=== PATIENT | female | born 1955 | race Caucasian/White ===

== ENCOUNTER 2024-05-01 21:00 | Inpatient (IN) ==
--- NOTE | 2024-05-01 21:25 | Emergency Department Note ---
Impression & Plan Acute pancreatitis, Abdominal pain, Vomiting ED Provider Note NAME: WELLINGTON SAEZ AGE: 69 SEX: F : 1955 ARRIVES VIA: Walk-In INFORMANT: Patient, ED PROVIDER(S): Benito Staples DO CHIEF COMPLAINT: Vomiting HPI: The patient is a 69-year-old female who presented to the emergency department for an evaluation of nausea vomiting. The patient describes lower abdominal pain that began over the last 48 hours. She was seen at an urgent care and started on an antibiotic for urinary tract infection. She has no history of diverticulitis. The patient denies having any back pain. She denies having any chest pain or fever. The patient came to the emergency department this evening because of ongoing worsening symptoms. The patient has been compliant with her outpatient medications which include an antibiotic as well as Pyridium. ROS: See above HPI for pertinent positives & negatives. A total of 10 systems reviewed and were otherwise negative. PAST MEDICAL HISTORY: See Below PAST SURGICAL HISTORY: See Below FAMILY HISTORY: See Below SOCIAL HISTORY: See Below HOME MEDICATIONS: See Below ALLERGIES: See Below VITALS: See Below PHYSICAL EXAMINATION: GENERAL: Patient is awake alert in no acute distress patient is resting comfortably and showing no signs of anxiety EYES: The conjunctivae are clear. The pupils are round and reactive. EARS, NOSE, MOUTH AND THROAT: The nose is without any evidence of any deformity. NECK: The neck is nontender and supple. RESPIRATORY: Normal respiratory effort is noted there is no evidence of wheezing rhonchi or rales CARDIOVASCULAR: Regular rate and rhythm noted there no murmurs rubs or gallops normal S1 normal S2. GASTROINTESTINAL: The abdomen is soft. There is lower abdominal tenderness to palpation. There is no guarding or rigidity. MUSCULOSKELETAL/EXTREMITIES: There is no evidence of gross deformity full range of motion is noted in the hips and shoulders. SKIN: There is no obvious evidence of any rash. There are no petechiae, pallor or cyanosis noted. NEUROLOGIC: Patient is awake alert and oriented x3 MEDICAL DECISION MAKING: The patient is a 69-year-old female who presented to the emergency department for an evaluation of abdominal pain. The patient was seen recently diagnosed with a urinary tract infection. She has been taking the antibiotics without significant relief of her symptoms. I discussed the patient's laboratory and radiographic studies with her. She was treated with pain medication in the emergency department. She was also treated with IV fluids and IV antiemetics. She was also treated with Protonix. CT appears to be consistent with mild pancreatitis. The patient does not have an elevation in her lipase. She has a slight elevation in her bilirubin. She does not appear to have any ductal dilatation. The patient was feeling somewhat improved but still had very severe pain. For this reason I will discuss her condition with the on-call [facility] hospitalist. Triage Nursing notes reviewed. Prior medical records reviewed Vital Signs: reviewed and remarkable for elevated blood pressure. Differential diagnosis: Etiologies such as appendicitis, diverticulitis, obstruction, inflammatory bowel disease, renal colic, PUD, biliary pathology, pancreatitis, mesenteric ischemia, aortic pathology, infections, genitourinary, UTI, perforated viscus, as well as others were entertained. ER treatment provided: See below Diagnostics interpreted by me: ECG: None Cardiac Monitoring: An order was placed for continuous cardiac monitoring. The monitor shows a rate of 97 bpm with sinus rhythm. Laboratory studies: As stated above and show below. Imaging studies: See below. Radiographic imaging was reviewed by myself Consultation(s): I discussed her condition with the on-call [facility] hospitalist, Dr. Harden. He will evaluate the patient in the emergency department. Past Med/Surg History Problem List (Updated 05/02/24 @ 00:54 by Brittany Ford DO) Urinary tract infection Vomiting (Acute) Abdominal pain (Acute) Acute pancreatitis (Acute) Osteoarthritis, knee Cobalamin deficiency Lumbosacral radiculopathy at S1 Obesity Scoliosis of lumbar region due to degenerative disease of spine in adult Degenerative spondylolisthesis Hypertension Spinal stenosis of lumbar region Lumbar radiculopathy Idiopathic polyneuropathy GERD (gastroesophageal reflux disease) Hyperlipidemia Prediabetes Venous insufficiency Restless leg syndrome Hypothyroidism Medical History Bilateral cataracts Surgical History Hx of cataract extraction Hx of colonoscopy S/P right knee arthroscopy (07/22/23) History of tonsillectomy History of wisdom tooth extraction S/P appendectomy S/P total hysterectomy and bilateral salpingo-oophorectomy Family History Father Prostate cancer Diabetes Coronary heart disease Myocardial infarction Hypertension Mother Ovarian cancer Aunt Ovarian cancer Aunt Dementia Other No family history of adverse response to anesthesia Denies family history of Breast cancer Colorectal cancer Social History Smoking Status: Never smoker Second Hand Exposure: No; Do You Dip or Chew Tobacco: No; Tobacco Cessation Education Requested by Patient: No Hx Alcohol Use: No Hx Substance Use: No Preferred Language: Slovak Communication Ability: Effective Visual Impairment: Partially Limited Hearing Ability: Normal Enterprise Application Administrator Required: No Beliefs That Will Affect Care: None marital status: Current Living Situation: Spouse current occupational status: retired current occupation: educator; 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 [employer] How many Children do You have: 1 Other Information That Helps Us Care for You: No Feels Safe at Home: Yes Safety Concerns: Feels Safe At This Time Childhood Exposure to Second-Hand Smoke: No Diet: regular Diet Comment: regular caffeine: Yes during the past year weight has: remained stable Dental Care, Regularly: Yes Physical Activity Frequency: Daily Physical Activity Frequency Comment: walks daily Seatbelt Use: always Sunscreen Use: Yes Assistive Devices: None Allergies Allergies Allergy/AdvReac Type Severity Reaction Status Date / Time No Known Drug Allergies Allergy Verified 04/29/24 10:24 Home Meds Home Medications Medication Instructions Recorded Confirmed atorvastatin 40 mg tablet 40 mg PO QAM 05/01/24 05/01/24 cephalexin 500 mg capsule 500 mg PO BID 05/01/24 05/01/24 furosemide 20 mg tablet (Lasix) 20 - 40 mg PO HS PRN edema 05/01/24 05/01/24 levothyroxine 125 mcg tablet 125 mcg PO DAILYBB 05/01/24 05/01/24 lisinopril 10 mg tablet 10 mg PO QAM 05/01/24 05/01/24 mecobalamin (vitamin B12) 1,000 1,000 mcg PO QAM 05/01/24 05/01/24 mcg chewable tablet omeprazole 20 mg capsule,delayed 20 mg PO QAM 05/01/24 05/01/24 release phenazopyridine 100 mg tablet 100 mg PO Q8 PRN URINARY BURNING 05/01/24 05/01/24 (Pyridium) Previous Rx's Medication Instructions Recorded hydrocodone 5 mg-acetaminophen 325 1 tab PO Q6H PRN pain #20 tabs 06/16/23 mg tablet gabapentin 300 mg capsule 300 mg PO HS #90 caps 01/06/24 meloxicam 7.5 mg tablet 7.5 mg PO BID #180 tabs 01/06/24 pramipexole 0.5 mg tablet 1 mg (2 x 0.5 mg) PO HS #180 tabs 04/11/24 Results & Data (ED) Vital Signs Vital Signs - 24 hr 05/01/24 21:02 05/01/24 21:20 05/01/24 21:33 Temperature 36.8 C Temperature Source Temporal Artery Scan Pulse Rate 107 H 84 Pulse Rate from SpO2 Sensor Respiratory Rate 20 Blood Pressure 174/100 H Blood Pressure Mean 124 Pulse Oximetry 97 97 Oxygen Delivery Method Room Air Room Air Sepsis Recent Fever Within 48 Hours No Sepsis New/Unexplained Change in Mental Status No Sepsis Action Taken by Nursing No Action Required 05/01/24 21:36 05/01/24 21:42 05/01/24 22:39 Temperature Temperature Source Pulse Rate 88 86 83 Pulse Rate from SpO2 Sensor 88 87 84 Respiratory Rate 18 21 19 Blood Pressure 169/93 H Blood Pressure Mean 118 Pulse Oximetry 96 94 97 Oxygen Delivery Method Room Air Sepsis Recent Fever Within 48 Hours Sepsis New/Unexplained Change in Mental Status Sepsis Action Taken by Nursing 05/01/24 22:51 05/01/24 23:00 05/01/24 23:06 Temperature Temperature Source Pulse Rate 88 97 H Pulse Rate from SpO2 Sensor 88 93 H Respiratory Rate 19 14 Blood Pressure 187/94 H 187/94 H Blood Pressure Mean 125 121 Pulse Oximetry 96 97 Oxygen Delivery Method Room Air Sepsis Recent Fever Within 48 Hours Sepsis New/Unexplained Change in Mental Status Sepsis Action Taken by Nursing 05/01/24 23:06 05/01/24 23:21 05/01/24 23:36 Temperature Temperature Source Pulse Rate 90 87 Pulse Rate from SpO2 Sensor 89 87 Respiratory Rate 25 H 16 Blood Pressure 187/94 H Blood Pressure Mean 121 Pulse Oximetry 98 Oxygen Delivery Method Room Air Sepsis Recent Fever Within 48 Hours Sepsis New/Unexplained Change in Mental Status Sepsis Action Taken by Nursing 05/01/24 23:51 05/02/24 00:00 05/02/24 00:00 Temperature Temperature Source Pulse Rate 88 Pulse Rate from SpO2 Sensor 88 Respiratory Rate 18 Blood Pressure 180/97 H 180/97 H Blood Pressure Mean 127 127 Pulse Oximetry 97 Oxygen Delivery Method Sepsis Recent Fever Within 48 Hours Sepsis New/Unexplained Change in Mental Status Sepsis Action Taken by Nursing 05/02/24 00:00 05/02/24 00:00 05/02/24 00:03 Temperature Temperature Source Pulse Rate 83 88 Pulse Rate from SpO2 Sensor 84 90 Respiratory Rate 22 18 Blood Pressure 180/97 H Blood Pressure Mean 127 Pulse Oximetry 99 100 Oxygen Delivery Method Sepsis Recent Fever Within 48 Hours Sepsis New/Unexplained Change in Mental Status Sepsis Action Taken by Prison Medications Current Medication List: was personally reviewed by me Laboratory Data Attestation: I reviewed the patient's lab results. 05/02/24 04:14 05/02/24 04:14 Lab Results 05/01/24 05/01/24 Range/Units 21:15 21:31 WBC 16.47 H (4.8-10.8) K/ul RBC 4.67 (4.20-5.40) M/uL Hgb 13.6 (12.0-16.0) g/dl POC Hgb 13.3 (12.0-16.0) g/dl Hct 40.1 (37.0-47.0) % POC Hct 39 (37-47) % MCV 85.9 (80.0-100.0) fL MCH 29.1 (25.0-34.0) pg MCHC 33.9 (32.0-36.0) g/dL RDW Std Deviation 38.5 (36.4-46.3) fL RDW Coeff of [place] 12.3 (11.5-14.5) % Plt Count 372 (130-400) K/uL MPV 9.6 (9.4-12.4) fL Immature Gran % (Auto) 0.4 % Neut % (Auto) 82.8 % Lymph % (Auto) 10.4 % [place] % (Auto) 5.7 % Eos % (Auto) 0.2 % Baso % (Auto) 0.5 % Neut # (Auto) 13.62 H (1.40-6.50) K/uL Lymph # (Auto) 1.71 (1.20-3.40) K/uL [place] # (Auto) 0.94 H (0.11-0.59) K/uL Eos # (Auto) 0.04 (0.00-0.50) K/uL Baso # (Auto) 0.09 (0.00-0.20) K/uL Immature Gran # (Auto) 0.07 (0.01-0.20) K/uL POC Sodium 137 (135-144) mmol/L Sodium 136 (136-145) mmol/L POC Potassium 3.5 (3.3-5.0) mmol/L Potassium 3.6 (3.5-5.1) mmol/L POC Chloride 101 (101-112) mmol/L Chloride 100 (98-107) mmol/L Carbon Dioxide 25 (21-32) mmol/L POC Total CO2 24 (24-31) mmol/L Anion Gap 11 (3-11) POC Anion Gap 17.0 (16-25) mmol/L POC BUN 11 (7-18) mg/dl BUN 14 (6-23) mg/dl Creatinine 0.67 (0.6-1.2) mg/dl POC Creatinine 0.7 (0.6-1.3) mg/dl Est Cr Clr Drug Dosing 88.0 ml/min Est GFR ( Amer) 105.4 ml/min Est GFR (Non-Af Amer) 91.0 ml/min BUN/Creatinine Ratio 20.9 H (10-20) Glucose 130 H (70-99(Fasting)) mg/dl POC Glucose (other) 165 H (70-99) mg/dl Calcium 9.8 (8.6-10.3) mg/dl POC Ioniz Calcium [place] 1.14 (1.12-1.32) mmol/l Total Bilirubin 1.1 H (0.2-1.0) mg/dl AST 16 (13-39) U/L ALT 16 (7-52) U/L Alkaline Phosphatase 106 H (34-104) U/L Total Protein 7.7 (6.0-8.3) gm/dl Albumin 4.4 (3.4-5.0) gm/dl Globulin 3.3 (2.5-4.0) gm/dl Albumin/Globulin Ratio 1.3 (0.9-2) Triglycerides 116 (0-150) mg/dl Lipase 55 (11-82) U/L Urine Color See Comment Urine Appearance Clear (Clear) Urine pH Not Reportable Ur Specific [place] 1.022 (1.000-1.030) Urine Protein Not Reportable Urine Glucose (UA) Not Reportable Urine Ketones Not Reportable Urine Blood Not Reportable Urine Nitrite Not Reportable Urine Bilirubin Not Reportable Urine Urobilinogen Not Reportable Ur Leukocyte Esterase Not Reportable Urine RBC 3-5 H (0-2) /hpf Urine WBC 6-10 H (0-5) /hpf Ur Epithelial Cells 11-20 H (0-2) /hpf Urine Bacteria None Seen (None Seen) Administered Medications Hydromorphone HCl (Hydromorphone Inj 0.5 Mg/0.5 Ml Syr) 0.25 mg IV Q6H PRN PRN Reason: Breakthrough Pain Stop: 05/16/24 01:55 Last Admin: 05/02/24 05:03 Dose: 0.25 mg Documented By: EMERY Lactated Ringer's (Lr) 1,000 mls @ 200 mls/hr IV .Q5H [facility] Stop: 06/01/24 01:55 Last Admin: 05/02/24 13:18 Dose: 200 mls/hr Documented By: Infusion: 05/02/24 13:10 Dose: Infused Documented By: Admin: 05/02/24 07:17 Dose: 200 mls/hr Documented By: Infusion: 05/02/24 07:15 Dose: Infused Documented By: Admin: 05/02/24 02:15 Dose: 200 mls/hr Documented By: MINDI Ceftriaxone Sodium (Rocephin) 2,000 mg in 50 mls @ 100 mls/hr IV Q24H [facility] Stop: 05/07/24 02:59 Last Infusion: 05/02/24 03:03 Dose: Infused Documented By: Admin: 05/02/24 02:23 Dose: 100 mls/hr Documented By: MINDI Pantoprazole Sodium 40 mg/ (Syringe) 10 mls @ 5 mls/min IV DAILY@1100 [facility] Stop: 06/01/24 10:59 Last Admin: 05/02/24 11:26 Dose: 5 mls/min Documented By: ISA Levothyroxine Sodium (Levothyroxine Sodium 125 Mcg Tablet) 125 mcg PO DAILYBB [facility] Stop: 06/01/24 06:29 Last Admin: 05/02/24 06:29 Dose: 125 mcg Documented By: IDD Lisinopril (Lisinopril 10 Mg Tab) 10 mg PO QAM [facility]EL[facility] Stop: 06/01/24 08:59 Last Admin: 05/02/24 07:17 Dose: 10 mg Documented By: MIRZA Morphine Sulfate (Morphine Sulfate 2 Mg/Ml Carp) 2 mg IV Q4H PRN PRN Reason: Pain 1-5 Stop: 05/16/24 01:55 Last Admin: 05/02/24 06:34 Dose: 2 mg Documented By: THERON Morphine Sulfate (Morphine Sulfate 4 Mg/Ml 1 Ml Carp\Vial) 4 mg IV Q4H PRN PRN Reason: Pain 5-10 Stop: 05/16/24 01:55 Last Admin: 05/02/24 13:18 Dose: 4 mg Documented By: Admin: 05/02/24 02:13 Dose: 4 mg Documented By: MINDI Discontinued Medications Amlodipine Besylate (Amlodipine Besylate 5 Mg Tab) 2.5 mg PO NOW ONE Stop: 05/02/24 13:32 Last Admin: 05/02/24 13:41 Dose: 2.5 mg Documented By: ISA Sodium Chloride (Nss) 1,000 mls @ 999 mls/hr IV .Q1H1M [facility] Stop: 05/01/24 22:15 Last Infusion: 05/01/24 22:43 Dose: Infused Documented By: Admin: 05/01/24 21:31 Dose: 999 mls/hr Documented By: MINDI Pantoprazole Sodium 40 mg/ (Syringe) 10 mls @ 5 mls/min IV NOW ONE Stop: 05/01/24 23:02 Last Admin: 05/01/24 23:19 Dose: 5 mls/min Documented By: SKYLAR Ioversol (Optiray 320 100ml) 95 ml IV ONCE ONE Stop: 05/01/24 22:16 Last Admin: 05/01/24 22:15 Dose: 95 ml Documented By: ANN MARIE Morphine Sulfate (Morphine Sulfate 4 Mg/Ml 1 Ml Carp\Vial) 4 mg IV Q15M PRN PRN Reason: Pain Stop: 05/15/24 21:14 Last Admin: 05/01/24 23:21 Dose: 4 mg Documented By: Admin: 05/01/24 21:31 Dose: 4 mg Documented By: MINDI Ondansetron HCl (Ondansetron Inj 2 Mg/Ml 2 Ml Vial) 4 mg IV NOW STA Stop: 05/01/24 21:16 Last Admin: 05/01/24 21:31 Dose: 4 mg Documented By: MINDI Imaging Data Attestation: I personally reviewed and interpreted this imaging study as follows: My Impression: CT of the abdomen and pelvis was obtained in the emergency department. My interpretation is no free air or definite bowel obstruction, final report below. Radiologist's Impression: Abdomen/Pelvis CT 05/01/24 21:15 Exam(s): CT ABDOMEN + PELVIS With Contrast IV Amt: 95ml optiray 320 EXAM: CT Abdomen and Pelvis With Intravenous Contrast CLINICAL HISTORY: Reason for exam: lower abd pain. TECHNIQUE: Axial computed tomography images of the abdomen and pelvis with intravenous contrast. CTDI is 27 mGy and DLP is 1323 mGy-cm. Automated exposure control was utilized for the study. A dose lowering technique was utilized adhering to the principles of ALARA. CONTRAST: Patient received 95ml optiray 320 of IV contrast COMPARISON: 09/07/20 FINDINGS: Lung bases: Unremarkable. No mass. No consolidation. ABDOMEN: Liver: Unremarkable. No mass. Gallbladder and bile ducts: Unremarkable. No calcified stones. No ductal dilation. Pancreas: Mild acute pancreatitis with inflammatory stranding surrounding the head and uncinate process of the pancreas. No drainable fluid or abscess collection. There is no evidence for pancreatic necrosis. Recommend correlation with serum pancreatic enzymes. No ductal dilation. Spleen: Unremarkable. No splenomegaly. Adrenals: Unremarkable. No mass. Kidneys and ureters: Unremarkable. No solid mass. No hydronephrosis. Stomach and bowel: Unremarkable. No obstruction. No mucosal thickening. PELVIS: Appendix: No findings to suggest acute appendicitis. Bladder: Unremarkable. No mass. Reproductive: Post hysterectomy. ABDOMEN and PELVIS: Intraperitoneal space: Mild inflammatory stranding extends into the left mesentery. Trace pelvic ascites. No free air. Bones/joints: No acute fracture. No dislocation. Lumbar spine levoscoliosis and facet hypertrophic changes. Soft tissues: Unremarkable. Vasculature: Unremarkable. No abdominal aortic aneurysm. Lymph nodes: Unremarkable. No enlarged lymph nodes. IMPRESSION: Mild acute pancreatitis with inflammatory stranding surrounding the head and uncinate process of the pancreas. No drainable fluid or abscess collection. There is no evidence for pancreatic necrosis. Recommend correlation with serum pancreatic enzymes. Electronically signed by: Angel Jeronimo MD 05/01/24 22:30 PM Discharge Plan Visit Data Chief Complaint: Vomiting Stated Complaint: LOWER ABD PAIN, VOMITING ED Provider: eBnito Staples Discharge Problem: Acute pancreatitis, Abdominal pain, Vomiting Patient Disposition: Being Evaluated by Hospitalist Discharge Instructions Interventions: ED Discharge Assessment Last Done: 05/02/24 01:56 Discharge Problem: Acute pancreatitis Qualifiers: Pancreatitis type: unspecified pancreatitis type Acute pancreatitis complication: unspecified Qualified Code(s): K85.90 - Acute pancreatitis without necrosis or infection, unspecified Abdominal pain Qualifiers: Abdominal location: lower abdomen, unspecified Qualified Code(s): R10.30 - Lower abdominal pain, unspecified Vomiting Qualifiers: Vomiting type: unspecified Nausea presence: with nausea Qualified Code(s): R 11.2 - Nausea with vomiting, unspecified
[2024-05-01 21:31] LABS: Appearance Urine Clear (Clear)
[2024-05-01] MEDS: ONDANSETRON INJ 2 MG/ML 2 ML VIAL IV STA (21:31)
[2024-05-01] MEDS: MoRPHine SULFATE 4 MG/ML 1 ML CARP\\VIAL IV PRN (21:31)
[2024-05-01] MEDS: SODIUM CHLORIDE 0.9% 1,000 ML IV STA (21:31)
[2024-05-01 21:42] LABS: Specific Gravity Urine 1.022 (1.000-1.030)
[2024-05-01 21:43] LABS: Basophils # (auto) 0.09 K/uL (0.00-0.20); Basophils % (auto) 0.5 %; Eosinophils # (auto) 0.04 K/uL (0.00-0.50); Eosinophils % (auto) 0.2 %; Hematocrit (blood only) 40.1 % (37.0-47.0); Hemoglobin 13.6 g/dl (12.0-16.0); Immature Granulocytes # (auto) 0.07 K/uL (0.01-0.20); Immature Granulocytes % (auto) 0.4 %; Lymphocytes # (auto) 1.71 K/uL (1.20-3.40); Lymphocytes % (auto) 10.4 %; Mean Corpuscular Hemoglobin 29.1 pg (25.0-34.0); Mean Corpuscular Hgb Conc 33.9 g/dL (32.0-36.0); Mean Corpuscular Volume 85.9 fL (80.0-100.0); Mean Platelet Volume 9.6 fL (9.4-12.4); Monocytes # (auto) 0.94 K/uL (0.11-0.59); Monocytes % (auto) 5.7 %; Neutrophils # (auto) 13.62 K/uL (1.40-6.50); Neutrophils % (auto) 82.8 %; Platelet Count 372 K/uL (130-400); RDW Coefficient of Variation 12.3 % (11.5-14.5); RDW Standard Deviation 38.5 fL (36.4-46.3); Red Blood Count 4.67 M/uL (4.20-5.40); White Blood Count 16.47 K/ul (4.8-10.8)
[2024-05-01 21:45] LABS: Bacteria Urine None Seen (None Seen)
[2024-05-01 21:48] LABS: iSTAT Creatinine 0.7 mg/dl (0.6-1.3); iSTAT Hemoglobin 13.3 g/dl (12.0-16.0); iSTAT Ionized Calcium 1.14 mmol/l (1.12-1.32); iSTAT Potassium 3.5 mmol/L (3.3-5.0)
[2024-05-01 21:48] LABS: Albumin Globulin Ratio 1.3 (0.9-2); Albumin Level 4.4 gm/dl (3.4-5.0); BUN Creatinine Ratio 20.9 (10-20); Bilirubin,Total 1.1 mg/dl (0.2-1.0); Calcium 9.8 mg/dl (8.6-10.3); Est GFR (African American) 105.4 ml/min; Globulin 3.3 gm/dl (2.5-4.0); Potassium 3.6 mmol/L (3.5-5.1); Total Protein 7.7 gm/dl (6.0-8.3)
[2024-05-01] MEDS: OPTIRAY 320 100ml IV ONE (22:15)
--- NOTE | 2024-05-01 22:31 | CT Scan Report ---
Exam(s): CT ABDOMEN + PELVIS With Contrast IV Amt: 95ml optiray 320 EXAM: CT Abdomen and Pelvis With Intravenous Contrast CLINICAL HISTORY: Reason for exam: lower abd pain. TECHNIQUE: Axial computed tomography images of the abdomen and pelvis with intravenous contrast. CTDI is 27 mGy and DLP is 1323 mGy-cm. Automated exposure control was utilized for the study. A dose lowering technique was utilized adhering to the principles of ALARA. CONTRAST: Patient received 95ml optiray 320 of IV contrast COMPARISON: 09/07/20 FINDINGS: Lung bases: Unremarkable. No mass. No consolidation. ABDOMEN: Liver: Unremarkable. No mass. Gallbladder and bile ducts: Unremarkable. No calcified stones. No ductal dilation. Pancreas: Mild acute pancreatitis with inflammatory stranding surrounding the head and uncinate process of the pancreas. No drainable fluid or abscess collection. There is no evidence for pancreatic necrosis. Recommend correlation with serum pancreatic enzymes. No ductal dilation. Spleen: Unremarkable. No splenomegaly. Adrenals: Unremarkable. No mass. Kidneys and ureters: Unremarkable. No solid mass. No hydronephrosis. Stomach and bowel: Unremarkable. No obstruction. No mucosal thickening. PELVIS: Appendix: No findings to suggest acute appendicitis. Bladder: Unremarkable. No mass. Reproductive: Post hysterectomy. ABDOMEN and PELVIS: Intraperitoneal space: Mild inflammatory stranding extends into the left mesentery. Trace pelvic ascites. No free air. Bones/joints: No acute fracture. No dislocation. Lumbar spine levoscoliosis and facet hypertrophic changes. Soft tissues: Unremarkable. Vasculature: Unremarkable. No abdominal aortic aneurysm. Lymph nodes: Unremarkable. No enlarged lymph nodes. IMPRESSION: Mild acute pancreatitis with inflammatory stranding surrounding the head and uncinate process of the pancreas. No drainable fluid or abscess collection. There is no evidence for pancreatic necrosis. Recommend correlation with serum pancreatic enzymes. Electronically signed by: Angel Jeronimo MD 05/01/24 22:30 PM
[2024-05-01] MEDS: PANTOprazole 40 MG in SYRINGE 0 ML IV ONE (23:19)
--- NOTE | 2024-05-01 23:45 | History & Physical Report ---
"Date of Service May 01, 2024 Assessment & Plan (1) Acute pancreatitis: (2) Urinary tract infection: (3) Vomiting: (4) Abdominal pain: (5) Hypertension: (6) GERD (gastroesophageal reflux disease): (7) Hyperlipidemia: (8) Prediabetes: (9) Venous insufficiency: (10) Restless leg syndrome: (11) Hypothyroidism: Plan Dimple is a 69F w/ PMH of degenerative spondylolisthesis, HTN, GERD, HLD, prediabetes, RLS, venous insufficiency, and hypothyroidism who presented for nausea and emesis and was found to have acute pancreatitis on imaging. Acute Pancreatitis - Labs: Leukocytosis and mildly elevated bilirubin/alk phos on presentation - CTAP: Mild acute pancreatitis with inflammatory stranding surrounding the head and uncinate process of the pancreas. No drainable fluid or abscess collection. There is no evidence for pancreatic necrosis. Recommend correlation with serum pancreatic enzymes. - Fluid Resuscitation: S/p 1L NSS in ED, continue 1.5 x mIVF w/ LR @ 200 cc/hr - Continue NPO on admission - Pain Management Morphine 2 mg IV Pain 1-5 Morphine 4 mg IV Pain 6-10 Dilaudid 0.25 IV Breakthrough Pain - Nausea Management Zofran 4 mg Q4h - Predisposing conditions: R/p Gallstone pancreatitis - RUQ US Ordered, may benefit from MRCP/ERCP if US non-specific, may consider EGD/US to characterize pancreatic head Hypertriglyceridemia - Hx of HLD on statin, TG wnl Hypercalcemia - Normal Ca level Alcohol - No alcohol use Urinary Tract Infection | Suprapubic Pain - Abnormal UA on 04/26, positive leukocyte esterase and small blood - Started on Cephalexin at urgent care, but was unable to keep Abx down d/t NV - Partially treated/unreadable UA on presentation (patient taking Azo) - Suprapubic TTP w/o CVA tenderness on exam - Will start Rocephin 2g IV daily on admission Chronic Conditions: - HTN: continue Lisinopril - HLD: Hold statin while NPO - GERD: PPI changed to IV inpatient while NPO - Prediabetes: Diet controlled, no home meds - RLS: meds held while NPO - Venous Insufficiency: PRN diuretic held - Hypothyroidism: continue Levothyroxine Code: Full Diet: NPO IVF: 1.5x mIVF Dispo: Med/Tele History of Present Illness Chief Complaint: Emesis Primary Care Provider: Winsome Le DO Dimple is a 69F w/ PMH of degenerative spondylolisthesis, HTN, GERD, HLD, prediabetes, RLS, venous insufficiency, and hypothyroidism who presented for nausea and emesis and was found to have acute pancreatitis on imaging. ED: 1L NSS, Morphine, Zofran, Pantoprazole HPI: Started having lower abdominal pain, nausea vomiting and diarrhea yesterday which progressed into today. Had been taking a medication for a UTI, went to [facility] acute care for suprapubic pain Abx but wasnt able to keep them down d/t nausea and emesis. No dysuria, no increased urinary frequency, no flank pain or back pain. Presented for lower abdominal/suprapubic pain which has worsened today. No blood in urine or stool. No epigastric pain or pain radiating to her back. No recent fevers or chills. Still taking medication for GERD, well controlled. Hx of HLD on statin therapy. No alcohol or tobacco use. Did try Mylanta for nausea but she threw it back up. No history of gallstones. No headaches, vision changes, lightheadedness or dizziness. Overall reduced appetite. No bilious or bloody emesis. No changes in medications. Allergies Allergy/AdvReac Type Severity Reaction Status Date / Time No Known Drug Allergies Allergy Verified 04/29/24 10:24 Home Medications Medication Instructions Recorded Confirmed Type hydrocodone 5 mg-acetaminophen 325 1 tab PO Q6H PRN pain #20 tabs 06/16/23 05/01/24 Rx mg tablet gabapentin 300 mg capsule 300 mg PO HS #90 caps 01/06/24 05/01/24 Rx meloxicam 7.5 mg tablet 7.5 mg PO BID #180 tabs 01/06/24 05/01/24 Rx pramipexole 0.5 mg tablet 1 mg (2 x 0.5 mg) PO HS #180 tabs 04/11/24 05/01/24 Rx atorvastatin 40 mg tablet 40 mg PO QAM 05/01/24 05/01/24 History cephalexin 500 mg capsule 500 mg PO BID 05/01/24 05/01/24 History furosemide 20 mg tablet (Lasix) 20 - 40 mg PO HS PRN edema 05/01/24 05/01/24 History levothyroxine 125 mcg tablet 125 mcg PO DAILYBB 05/01/24 05/01/24 History lisinopril 10 mg tablet 10 mg PO QAM 05/01/24 05/01/24 History mecobalamin (vitamin B12) 1,000 1,000 mcg PO QAM 05/01/24 05/01/24 History mcg chewable tablet omeprazole 20 mg capsule,delayed 20 mg PO QAM 05/01/24 05/01/24 History release phenazopyridine 100 mg tablet 100 mg PO Q8 PRN URINARY BURNING 05/01/24 05/01/24 History (Pyridium) Past Med/Surg History Problem List (Updated 05/02/24 @ 17:18 by Roxann Bosch PA-C) Urinary tract infection Vomiting (Acute) Abdominal pain (Acute) Acute pancreatitis (Acute) Osteoarthritis, knee Cobalamin deficiency Lumbosacral radiculopathy at S1 Obesity Scoliosis of lumbar region due to degenerative disease of spine in adult Degenerative spondylolisthesis Hypertension Spinal stenosis of lumbar region Lumbar radiculopathy Idiopathic polyneuropathy GERD (gastroesophageal reflux disease) Hyperlipidemia Prediabetes Venous insufficiency Restless leg syndrome Hypothyroidism Medical History Bilateral cataracts Surgical History Hx of cataract extraction Hx of colonoscopy S/P right knee arthroscopy (07/22/23) History of tonsillectomy History of wisdom tooth extraction S/P appendectomy S/P total hysterectomy and bilateral salpingo-oophorectomy Family History Father Prostate cancer Diabetes Coronary heart disease Myocardial infarction Hypertension Mother Ovarian cancer Aunt Ovarian cancer Aunt Dementia Other No family history of adverse response to anesthesia Denies family history of Breast cancer Colorectal cancer Social History Smoking Status: Never smoker Second Hand Exposure: No; Do You Dip or Chew Tobacco: No; Tobacco Cessation Education Requested by Patient: No Hx Alcohol Use: No Hx Substance Use: No Preferred Language: Polish Communication Ability: Effective Visual Impairment: Partially Limited Hearing Ability: Normal Park Maintenance Technician Required: No Beliefs That Will Affect Care: None marital status: Current Living Situation: Spouse current occupational status: retired current occupation: educator; 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 How many Children do You have: 1 Other Information That Helps Us Care for You: No Feels Safe at Home: Yes Safety Concerns: Feels Safe At This Time Childhood Exposure to Second-Hand Smoke: No Diet: regular Diet Comment: regular caffeine: Yes during the past year weight has: remained stable Dental Care, Regularly: Yes Physical Activity Frequency: Daily Physical Activity Frequency Comment: walks daily Seatbelt Use: always Sunscreen Use: Yes Assistive Devices: None Physical Exam Physical Exam: Gen: NAD, alert, interactive HEENT: Supple, no LAD, no thyromegaly, no JVD Resp:Non-labored, no wheezing/rhonchi/rales, CTAB CV:RRR, normal S1/S2, no M/R/G Abd: Soft, non-distended, epigastric and suprapubic TTP, normoactive bowels, no masses, no CVA tenderness Extr: 2+ dp bilaterally, 2+ non-pitting edema Skin: No rashes lesions or erythema Results & Data Results & Data Vital Signs (Past 12 Hours) Vital Signs Temp Pulse Resp BP Pulse Ox O2 Del Method 05/01/24 23:00 97 H 14 187/94 H 97 Room Air 05/01/24 22:51 88 19 96 05/01/24 22:39 83 19 97 05/01/24 21:42 86 21 94 05/01/24 21:36 88 18 169/93 H 96 Room Air 05/01/24 21:33 84 05/01/24 21:20 97 Room Air 05/01/24 21:02 36.8 C 107 H 20 174/100 H 97 Room Air Supervising Physician Co-Signing Physician Notes Attending addendum: I have physically seen this patient, have supervised the medical residents activities, and agree with the H&P unless as otherwise noted. Assessment and Plan: Acute mild pancreatitis/mesenteritis- CT scan abdomen and pelvis showing mild acute pancreatitis with inflammatory stranding surrounding the head and uncinate process of the pancreas. No drainable fluid or abscess collection and no evidence for pancreatic necrosis Lipase normal at 55 NPO Pain regimen as noted with morphine and Dilaudid IV Zofran 4 mg IV every 6 hours as needed Ordering ultrasound right upper quadrant May ultimately need ERCP/EUS Consult gastroenterology Urinary tract infection- Had abnormal UA as outpatient, and was started on cephalexin at urgent care Placed on ceftriaxone 2 g IV daily Follow urine culture and sensitivity Remaining orders and notations as noted Resident Activity Tracking Resident Involvement: Resident Care Provided Care Provided: Adult [facility] (1) Acute pancreatitis Acute pancreatitis complication: unspecified Pancreatitis type: unspecified pancreatitis type Qualified Code(s): K85.90 - Acute pancreatitis without necrosis or infection, unspecified (3) Vomiting Nausea presence: with nausea Vomiting type: unspecified Qualified Code(s): R11.2 - Nausea with vomiting, unspecified (4) Abdominal pain Abdominal location: lower abdomen, unspecified Qualified Code(s): R10.30 - Lower abdominal pain, unspecified"
--- NOTE | 2024-05-02 01:41 | Ultrasound Report ---
Exam(s): US GALLBLADDER EXAM: US Abdomen Limited, Gallbladder CLINICAL HISTORY: Reason for exam: R/o Gallstones in Pancreatitis. TECHNIQUE: Real-time ultrasound of the right upper quadrant with image documentation. COMPARISON: No relevant prior studies available. FINDINGS: Liver: Fatty infiltration of the liver. Gallbladder: Gallbladder wall is sonographically unremarkable. No cholelithiasis or evidence for acute cholecystitis. Common bile duct: Common bile duct measures 6 mm in width. No intrahepatic ductal dilatation. No stones. Pancreas: Pancreas and obscured by overlying bowel gas. IMPRESSION: No acute findings in the right upper quadrant. Electronically signed by: Angel Jeronimo MD 05/02/24 01:40 AM
[2024-05-02] MEDS: MoRPHine SULFATE 4 MG/ML 1 ML CARP\\VIAL IV PRN (02:13)
[2024-05-02] MEDS: LACTATED RINGER'S 1,000 ML IV SCH (02:15)
[2024-05-02] MEDS: cefTRIAXone SODIUM 2,000 MG/50 ML BAG IV SCH (02:23)
[2024-05-02 04:50] LABS: Hematocrit (blood only) 34.3 % (37.0-47.0); Hemoglobin 11.3 g/dl (12.0-16.0); Mean Corpuscular Hemoglobin 28.8 pg (25.0-34.0); Mean Corpuscular Hgb Conc 32.9 g/dL (32.0-36.0); Mean Corpuscular Volume 87.5 fL (80.0-100.0); Mean Platelet Volume 9.2 fL (9.4-12.4); Platelet Count 285 K/uL (130-400); RDW Coefficient of Variation 12.5 % (11.5-14.5); Red Blood Count 3.92 M/uL (4.20-5.40); White Blood Count 14.23 K/ul (4.8-10.8)
[2024-05-02] MEDS: HYDROmorphone INJ 0.5 MG/0.5 ML SYR IV PRN (05:03)
[2024-05-02 05:08] LABS: Albumin Globulin Ratio 1.3 (0.9-2); Albumin Level 3.5 gm/dl (3.4-5.0); BUN Creatinine Ratio 18.2 (10-20); Bilirubin,Total 0.7 mg/dl (0.2-1.0); Calcium 8.3 mg/dl (8.6-10.3); Creatinine Clr Calc Pharmacy 89.3 ml/min; Est GFR (African American) 105.9 ml/min; Est GFR (Non-African American) 91.4 ml/min; Globulin 2.6 gm/dl (2.5-4.0); Potassium 3.5 mmol/L (3.5-5.1); Total Protein 6.1 gm/dl (6.0-8.3)
[2024-05-02] MEDS: LEVOTHYROXINE SODIUM 125 MCG TABLET PO SCH (06:29)
[2024-05-02] MEDS: MoRPHine SULFATE 2 MG/ML CARP IV PRN (06:34)
[2024-05-02] MEDS: lisinopril 10 MG TAB PO SCH (07:17)
[2024-05-02] MEDS: PANTOprazole 40 MG in SYRINGE 0 ML IV SCH (11:26)
[2024-05-02] MEDS: amLODIPine BESYLATE 5 MG TAB PO ONE (13:41)
--- NOTE | 2024-05-02 14:01 | Hospitalist Progress Note ---
Date of Service May 02, 2024 Assessment & Plan (1) Acute pancreatitis: Plan: Patient presented to ED on 05/01 after 1 day history of lower abdominal pain. Patient denies alcohol use. -Reviewed CTAP 05/01: mild acute pancreatitis with inflammatory stranding surrounding the head and uncinate process of pancreas. No drainable fluid/abscess collection. no evidence of pancreatic necrosis. -Reviewed RUQ US 05/01: negative - Reviewed CBC 05/02: WBC 14.23 -Reviewed triglycerides 05/01: 116 -Reviewed lipase 05/01: 55 -Continue Lactated ringers -Given significant pain, maintain NPO status -Will re-evaluate in AM if patient can advance to clear liquid diet. -Pain management: -Morphine 2mg IV pain 1-5 -Morphine 4mg IV pain 6-10 -Dilaudid 0.25IV breakthrough pain -Zofran prn for nausea/vomiting. -Would consider follow up CTAP in 4-6 weeks following resolution of pancreatitis to reassess pancreas. AM CBC, BMP, CRP (2) Urinary tract infection: Plan: Patient originally started on cephlaexin outpatient but due to nausea and vomiting was unable to keep antibiotic down -Rocephin 2g IV daily -Partially treated/unreadable UA on presentation -Will continue to monitor symptoms. (3) Hypertension: Plan: acute on chronic. -Continue lisinopril 10mg daily. -s/p amlodipine 2.5mg -s/p hydralazine 5mg IV -BP currently 173/79. -avoid overcorrection of BP. -will continue to monitor and correct as needed. AM TSH Plan Chronic conditions: -hyperlipidemia: hold statin while NPO -GERD: PPI -Prediabetes: diet controlled, no home Meds -RLS: Meds held while NPO -Venous insufficiency: Prn diuretic held -hypothyroidism: continue levothyroxine Code: full Diet: NPO DVT prophylaxis: SCD's Disposition: med tele Admission and Anticipated Discharge Date Admission Date: May 02, 2024 Subjective Patient seen and examined this afternoon at bedside. Prior to my encounter, patient was given some morphine for pain control. She reports majority of her pain is in her lower abdominal but does experience epigastric tenderness when palpated. The pain has been present for about 2 days now. She has never had pancreatitis in the past. She denies any issues with gallbladders in past. She denies alcohol use. She was started on Cephalexin by urgent care for UTI. Physical Exam 2 Constitutional: WD/WN, vitals as above Eyes: PERRL, conjunctivae normal, anicteric sclerae Respiratory: normal respiratory effort, lungs clear to auscultation Cardiovascular: RRR, no murmur, no edema Gastrointestinal (Abdomen): positive bowel sounds, tender to palpation in generalized abdomen Skin: no rashes, warm and dry Psychiatric: A+Ox3, euthymic affect Results & Data Results & Data Vital Signs (Past 12 Hours) Vital Signs Pulse Pulse Pulse Resp BP BP BP 05/02/24 13:40 82 18 202/95 H 05/02/24 13:13 79 20 201/113 H 05/02/24 11:18 81 21 181/95 H 05/02/24 10:12 80 18 05/02/24 08:25 86 05/02/24 08:00 86 18 05/02/24 07:03 74 15 05/02/24 07:00 149/68 H 05/02/24 07:00 149/68 H 05/02/24 05:45 88 18 175/86 H 05/02/24 02:30 153/69 H 05/02/24 02:18 87 17 05/02/24 02:16 81 05/02/24 02:12 80 17 05/02/24 02:03 91 H 17 Pulse Ox O2 Del Method O2 Flow Rate 05/02/24 13:40 98 Nasal Cannula 2 05/02/24 13:13 95 Room Air 05/02/24 11:18 99 Room Air 05/02/24 10:12 94 05/02/24 08:25 05/02/24 08:00 97 05/02/24 07:03 94 05/02/24 07:00 05/02/24 07:00 05/02/24 05:45 94 Room Air 05/02/24 02:30 05/02/24 02:18 92 05/02/24 02:16 05/02/24 02:12 93 05/02/24 02:03 94 Room Air Laboratory Results 05/02/24 04:14 05/02/24 04:14 Diagnostic Findings Abdomen/Pelvis CT 05/01/24 21:15 IMPRESSION: Mild acute pancreatitis with inflammatory stranding surrounding the head and uncinate process of the pancreas. No drainable fluid or abscess collection. There is no evidence for pancreatic necrosis. Recommend correlation with serum pancreatic enzymes. Electronically signed by: Angel Jeronimo MD 05/01/24 22:30 PM Gallbladder Ultrasound 05/02/24 00:27 IMPRESSION: No acute findings in the right upper quadrant. Electronically signed by: Angel Jeronimo MD 05/02/24 01:40 AM PG Care Time/CCT Total # of Minutes Spent Total Time Spent with Patient: Total time spent is greater than 50% in coordination of care (as documented) at patient's floor/unit and/or counseling patient: Coding Level of Care Code 83807 SUB INP/OBS CARE 3/50MIN Diagnoses Acute pancreatitis K85.90 Acute pancreatitis complication: unspecified Pancreatitis type: unspecified pancreatitis type Acute cystitis without hematuria N30.00 Urinary tract infection type: acute cystitis Hematuria presence: without hematuria Primary hypertension I10 Hypertension type: primary hypertension (1) Acute pancreatitis Acute pancreatitis complication: unspecified Pancreatitis type: unspecified pancreatitis type Qualified Code(s): K85.90 - Acute pancreatitis without necrosis or infection, unspecified (2) Urinary tract infection Urinary tract infection type: acute cystitis Hematuria presence: without hematuria Qualified Code(s): N30.00 - Acute cystitis without hematuria (3) Hypertension Hypertension type: primary hypertension Qualified Code(s): I10 - Essential (primary) hypertension
[2024-05-02] MEDS: hydrALAZINE HCL 20 MG/ML VIAL IV ONE (15:35)
[2024-05-02] MEDS ORDERED: PRAMIPEXOLE DIHYDROCHLO 0.5 MG TAB PO SCH (20:10)
[2024-05-02] MEDS: ACETAMINOPHEN 1,000 MG/100 ML VIAL IV STA (20:55)
[2024-05-02] MEDS: ACETAMINOPHEN 1000 MG/100 ML IV IV ONE (20:56)
[2024-05-02] MEDS: PRAMIPEXOLE DIHYDROCHLO 0.5 MG TAB PO SCH (21:00)
--- NOTE | 2024-05-03 00:43 | Billing Data ---
Date of Service May 03, 2024 Coding Level of Care Code 42658 INT INP/OBS CARE
[2024-05-03 02:17] VITALS: RESP 18
[2024-05-03] MEDS: ONDANSETRON INJ 2 MG/ML 2 ML VIAL IV PRN (06:44)
[2024-05-03 07:54] LABS: Hematocrit (blood only) 31.3 % (37.0-47.0); Hemoglobin 10.4 g/dl (12.0-16.0); Mean Corpuscular Hemoglobin 29.1 pg (25.0-34.0); Mean Corpuscular Hgb Conc 33.2 g/dL (32.0-36.0); Mean Corpuscular Volume 87.7 fL (80.0-100.0); Mean Platelet Volume 9.5 fL (9.4-12.4); Platelet Count 236 K/uL (130-400); RDW Coefficient of Variation 12.2 % (11.5-14.5); RDW Standard Deviation 39.6 fL (36.4-46.3); Red Blood Count 3.57 M/uL (4.20-5.40); White Blood Count 10.97 K/ul (4.8-10.8)
[2024-05-03 08:07] LABS: BUN Creatinine Ratio 16.1 (10-20); C Reactive Protein 18.65 mg/dl (0-0.5); Calcium 8.3 mg/dl (8.6-10.3); Creatinine Clr Calc Pharmacy 105.2 ml/min; Est GFR (African American) 111.8 ml/min; Est GFR (Non-African American) 96.5 ml/min; Potassium 3.3 mmol/L (3.5-5.1)
[2024-05-03 08:22] LABS: Thyroid Stimulating Hormone 0.111 uIu/ml (0.300-4.500)
[2024-05-03] MEDS: POTASSIUM CHLORIDE CRTAB 20 MEQ TABCR PO ONE (09:11)
[2024-05-03 10:13] LABS: T4 Free Thyroxine 1.21 ng/dl (0.61-1.60)
--- NOTE | 2024-05-03 11:50 | Hospitalist Progress Note ---
Date of Service May 03, 2024 Assessment & Plan (1) Acute pancreatitis: Plan: Patient presented to ED on 05/01 after 1 day history of lower abdominal pain. Patient denies alcohol use. -Reviewed CTAP 05/01: mild acute pancreatitis with inflammatory stranding surrounding the head and uncinate process of pancreas. No drainable fluid/abscess collection. no evidence of pancreatic necrosis. -Reviewed RUQ US 05/01: negative -Reviewed triglycerides 05/01: 116 -Reviewed lipase 05/01: 55 - Reviewed CBC 05/03: WBC 10.97 -Reviewed CRP 05/03: 18.65. -Continue Lactated ringers, decreased fluid rate given patient tolerating diet. -Continue Full liquid diet. -if patient tolerates dinner 05/03, she may be advanced to low fat diet 05/04 AM. -Pain management: -Morphine 2mg IV pain 1-5 -Morphine 4mg IV pain 6-10 -Dilaudid 0.25IV breakthrough pain -Zofran prn for nausea/vomiting. -Patient febrile 05/02. s/p 1 dose Tylenol with resolution. -Would consider follow up CTAP in 4-6 weeks following resolution of pancreatitis to reassess pancreas. -Patient was supposed to be traveling to [place] on a trip this week which has since been cancelled given her recent illness. Due to her current pancreatitis, patient was advised against travel until pain is controlled and diet can be tolerated. Duration of course may be up to 10 days. AM CBC, BMP, CRP (2) Urinary tract infection: Plan: Patient originally started on cephalexin outpatient but due to nausea and vomiting was unable to keep antibiotic down -Rocephin 2g IV daily -Partially treated/unreadable UA on presentation -Will continue to monitor symptoms. (3) Hypertension: Plan: acute on chronic. stable. -Continue lisinopril 10mg daily. -s/p amlodipine 2.5mg -s/p hydralazine 5mg IV -avoid overcorrection of BP. -Reviewed TSH 05/03: 0.111, Free T4 1.21 -will continue to monitor and correct as needed. Plan Chronic conditions: -hyperlipidemia: hold statin while NPO -GERD: PPI -Prediabetes: diet controlled, no home Meds -RLS: Pramipexole -Venous insufficiency: Prn diuretic held -hypothyroidism: continue levothyroxine Code: full Diet: full liquid DVT prophylaxis: SCD's Disposition: med tele Admission and Anticipated Discharge Date Admission Date: May 02, 2024 Subjective Patient seen and examined this morning at bedside. present at time of encounter. Patient reports improvement in her symptoms today. She did tolerate a clear liquid diet for lunch and was looking forward to full liquid diet for dinner. She reports her abdominal pain has been mild. She denies any further nausea, vomiting. She denies chest pain or shortness of breath. She denies any urinary complaints. She has been ambulating around the [place] as well. Physical Exam 2 Constitutional: WD/WN, vitals as above Eyes: PERRL, conjunctivae normal, anicteric sclerae Respiratory: normal respiratory effort, lungs clear to auscultation Gastrointestinal (Abdomen): positive bowel sounds, minimal tenderness to palpation Skin: no rashes, warm and dry Psychiatric: A+Ox3, euthymic affect Results & Data Results & Data Vital Signs (Past 12 Hours) Vital Signs Temp Pulse Pulse Resp BP Pulse Ox O2 Del Method 05/03/24 11:32 37.3 C 69 18 149/80 H 96 Room Air 05/03/24 08:33 91 H 05/03/24 07:25 37.2 C 77 18 146/79 H 96 Room Air 05/03/24 02:17 36.6 C 76 18 122/68 96 Room Air 05/03/24 00:00 80 Laboratory Results 05/03/24 07:02 05/03/24 07:02 PG Care Time/CCT Total # of Minutes Spent Total Time Spent with Patient: Total time spent is greater than 50% in coordination of care (as documented) at patient's floor/unit and/or counseling patient: Coding Level of Care Code 35118 SUB INP/OBS CARE 2/35MIN Diagnoses Acute pancreatitis K85.90 Acute pancreatitis complication: unspecified Pancreatitis type: unspecified pancreatitis type Acute cystitis without hematuria N30.00 Hematuria presence: without hematuria Urinary tract infection type: acute cystitis Primary hypertension I10 Hypertension type: primary hypertension (1) Acute pancreatitis Acute pancreatitis complication: unspecified Pancreatitis type: unspecified pancreatitis type Qualified Code(s): K85.90 - Acute pancreatitis without necrosis or infection, unspecified (2) Urinary tract infection Hematuria presence: without hematuria Urinary tract infection type: acute cystitis Qualified Code(s): N30.00 - Acute cystitis without hematuria (3) Hypertension Hypertension type: primary hypertension Qualified Code(s): I10 - Essential (primary) hypertension
[2024-05-03 19:12] VITALS: TEMP 98.6
[2024-05-04 07:39] VITALS: BP 154/78; PULSE 73; O2SAT 96
[2024-05-04 07:47] LABS: Hematocrit (blood only) 29.7 % (37.0-47.0); Mean Corpuscular Hgb Conc 33.7 g/dL (32.0-36.0); Mean Corpuscular Volume 86.1 fL (80.0-100.0); Mean Platelet Volume 9.6 fL (9.4-12.4); Platelet Count 250 K/uL (130-400); RDW Coefficient of Variation 12.2 % (11.5-14.5); RDW Standard Deviation 38.2 fL (36.4-46.3); Red Blood Count 3.45 M/uL (4.20-5.40); White Blood Count 8.82 K/ul (4.8-10.8)
[2024-05-04 08:00] LABS: BUN Creatinine Ratio 10.7 (10-20); C Reactive Protein 13.43 mg/dl (0-0.5); Calcium 8.3 mg/dl (8.6-10.3); Creatinine Clr Calc Pharmacy 105.2 ml/min; Est GFR (African American) 111.8 ml/min; Est GFR (Non-African American) 96.5 ml/min; Potassium 3.6 mmol/L (3.5-5.1)
--- NOTE | 2024-05-04 09:56 | Discharge Summary ---
Date of Service May 04, 2024 Admission HPI Per Admitting Provider Dimple is a 69F w/ PMH of degenerative spondylolisthesis, HTN, GERD, HLD, prediabetes, RLS, venous insufficiency, and hypothyroidism who presented for nausea and emesis and was found to have acute pancreatitis on imaging. ED: 1L NSS, Morphine, Zofran, Pantoprazole HPI: Started having lower abdominal pain, nausea vomiting and diarrhea yesterday which progressed into today. Had been taking a medication for a UTI, went to [facility] acute care for suprapubic pain Abx but wasnt able to keep them down d/t nausea and emesis. No dysuria, no increased urinary frequency, no flank pain or back pain. Presented for lower abdominal/suprapubic pain which has worsened today. No blood in urine or stool. No epigastric pain or pain radiating to her back. No recent fevers or chills. Still taking medication for GERD, well controlled. Hx of HLD on statin therapy. No alcohol or tobacco use. Did try Mylanta for nausea but she threw it back up. No history of gallstones. No headaches, vision changes, lightheadedness or dizziness. Overall reduced appetite. No bilious or bloody emesis. No changes in medications. Principal Diagnosis UTI, pancreatitis Discharge Exam Constitutional WD/WN, vitals as above Eyes PERRL, conjunctivae normal, anicteric sclerae Respiratory normal respiratory effort, lungs clear to auscultation Cardiovascular RRR, no murmur, no edema Skin no rashes, warm and dry Psychiatric A+Ox3, euthymic affect Discharge Data Allergies Allergy/AdvReac Type Severity Reaction Status Date / Time No Known Drug Allergies Allergy Verified 04/29/24 10:24 Consultations 05/01/24 23:25 ED Decision to Admit Stat Ordered Studies Abdomen/Pelvis CT 05/01/24 21:15 IMPRESSION: Mild acute pancreatitis with inflammatory stranding surrounding the head and uncinate process of the pancreas. No drainable fluid or abscess collection. There is no evidence for pancreatic necrosis. Recommend correlation with serum pancreatic enzymes. Electronically signed by: Angel Jeronimo MD 05/01/24 22:30 PM Gallbladder Ultrasound 05/02/24 00:27 IMPRESSION: No acute findings in the right upper quadrant. Electronically signed by: Angel Jeronimo MD 05/02/24 01:40 AM Hospital Course (1) Acute pancreatitis: Patient presented to ED on 05/01 after 1 day history of lower abdominal pain. Patient denies alcohol use. She had a CTAP on 05/01 that revealed acute pancreatitis with inflammatory stranding surrounding the head & uncinate process of pancreas. No drainable fluid/abscess collection and no evidence of pancreatic necrosis. Her RUQ US on 05/01 was negative for acute gallbladder pathology. Triglycerides WNL 05/01 at 116. Lipase WNL 05/01 at 55. CBC revealed WBC WNL 05/03. CRP downtrending to 13.43 on 05/03. She was given lactated ringers and transitioned to solid low fat diet day of discharge. She was given morphine and dilaudid for pain. She did experience fever on 05/02 which was treated with IV tylenol and has been afebrile since. Recommended to repeat CTAP in 4-6 weeks following episode of pancreatitis to reassess for resolution. Cause of pancreatitis was unknown. -Patient was supposed to be traveling to [place] on a trip this week which has since been cancelled given her recent illness. Due to her current pancreatitis, patient was advised against travel until pain is controlled and diet can be tolerated. Duration of course may be up to 10 days. (2) Urinary tract infection: Patient originally started on cephalexin outpatient but due to nausea and vomiting was unable to keep antibiotic down. She was given Rocephin 2g IV daily inpatient and transitioned to cefpodoxime 200mg BID x 5 days outpatient. Patient mentioned getting knee replacement and had to be clear of UTI at time of surgery. Pending antibiotic course, patient UTI should resolve however if concern still present, may repeat urinalysis. (3) Hypertension: Patient was hypertensive during hospital stay. She was continued on lisinopril 10mg day. On 05/02 she was given additional 2.5mg amlodipine PO and hydralazine 5mg IV. Her TSH 05/03 was 0.111 and Free T4 1.21. Plan Statin was held while NPO but recommended to resume after discharge. She was to continue on PPI for GERD. Pramipexole for RLS and synthroid for hypothyroidism. Total Time Total Time Spent Total Time Spent (In Minutes): 40 Total Time Includes: Examination of the Patient, Discharge Planning and Medication Reconciliation Discharge Plan Discharge Items Patient Disposition: Home - Self-Care Reason For Visit: UTI, PANCREATITIS Discharge Diagnosis: Pancreatitis, UTI Activity: Resume your previous activity Non-emergency contact: Primary Care Provider Call non-emergency contact if: you have any medication questions, your symptoms worsen and you have a fever Follow-up/Referrals: Winsome Le DO [Primary Care Provider] - 05/18/24 8:20 am Diet: Low Fat Addtl Attending Provider Instructions: Mrs. Lynch, You were recently hospitalized for nausea, vomiting, and abdominal pain. Findings on CT scan revealed a diagnosis of pancreatitis. You were treated with IV fluids, bowel rest, and pain management. You were also continued on treatment for your urinary tract infection. Please see recommendations below regarding your discharge. 1. You will be sent in Cefpodoxime 200mg twice daily for the next 5 days. Your first dose will be this evening 05/04 -Please take with food to avoid GI upset. -Following this, you will be cleared of your UTI, however if additional providers would like a follow up urinalysis, please discuss this with your PCP 2. Please use tylenol as needed for pain or fever 3. Please continue to maintain an adequate amount of fluids 4. Your atorvastatin was held while you were inpatient due to not eating. You may resume this upon discharge. 5. Continue on your omeprazole for GERD 6. Continue lisinopril for high blood pressure 7. Continue Pramipexole for restless leg syndrome 8. Continue levothyroxine for hypothyroidism Please follow up with your PCP within 1-2 weeks of discharge. If you experience any worsening of symptoms including abdominal pain, nausea, vomiting, blood in urine, urinary frequency/urgency/burning please report back to the ED for further evaluation. Sincerely, Roxann Bosch PA-C Pending Studies at Discharge: No Stand-Alone Forms: My [employer], Smoking Cessation Medications and DC Order Prescriptions: New cefpodoxime 200 mg tablet 200 mg PO BID Qty: 10 0RF Rx Instructions: must administer with a meal/food Continued gabapentin 300 mg capsule 300 mg PO HS Qty: 90 1RF meloxicam 7.5 mg tablet 7.5 mg PO BID Qty: 180 1RF pramipexole 0.5 mg tablet 1 mg PO HS Qty: 180 1RF hydrocodone-acetaminophen 5-325 mg tablet 1 tab PO Q6H PRN (Reason: pain) Qty: 20 0RF phenazopyridine [Pyridium] 100 mg tablet 100 mg PO Q8 PRN (Reason: URINARY BURNING) atorvastatin 40 mg tablet 40 mg PO QAM levothyroxine 125 mcg tablet 125 mcg PO DAILYBB lisinopril 10 mg tablet 10 mg PO QAM omeprazole 20 mg capsule,delayed release(DR/EC) 20 mg PO QAM furosemide [Lasix] 20 mg tablet 20 - 40 mg PO HS PRN (Reason: edema) mecobalamin (vitamin B12) 1,000 mcg tablet,chewable 1,000 mcg PO QAM Discontinued cephalexin 500 mg capsule 500 mg PO BID Discharge Orders: Discharge Order (Routine); Ordered 05/04/24 Ordered By: Roxann Coughlin/Other Patient Handouts: Abdominal Pain, Pancreatitis Acute Dc Admission Data Admit Date/Time: 05/02/24 00:24 Attending Provider: Poncho Aguila Admit Provider: Brittany Ford Primary Care Provider: Winsome Le Other Providers: Brian Boles Other Interventions: Discharge Summary Assessment (RN) Last Done: 05/04/24 10:00 Coding Level of Care Code 10977 INP/OBS DISCH >30 MIN Diagnoses Acute pancreatitis K85.90 Acute pancreatitis complication: unspecified Pancreatitis type: unspecified pancreatitis type Acute cystitis without hematuria N30.00 Hematuria presence: without hematuria Urinary tract infection type: acute cystitis Primary hypertension I10 Hypertension type: primary hypertension
== END 2024-05-04 10:44 | disposition home or self-care (01) | DRG 439 ==
LOC: ED 21:00 → EDINP 05-02 00:24 → SUATTDRO 05-02 00:24 → 2N 05-02 01:56

== ENCOUNTER 2025-09-26 05:59 | Inpatient (IN) ==
--- NOTE | 2025-09-15 11:26 | PAT Medication Instructions ---
Medication Instructions Date of Service September 15, 2025 Home Medications Medication Instructions Recorded hydrocodone 5 mg-acetaminophen 325 1 tab PO Q6H PRN pain #20 tabs 06/16/23 mg tablet atorvastatin 40 mg tablet 40 mg PO QAM #90 tabs 12/27/24 furosemide 20 mg tablet (Lasix) 20 - 40 mg (1 - 2 x 20 mg) PO HS 12/27/24 PRN edema #180 tabs CBD cream 2 g topical .twice a day PRN lower 03/27/25 back pain #32 grams acetaminophen 500 mg tablet 500 mg PO Q6H PRN fever #180 tabs 03/27/25 (Tylenol Extra Strength) gabapentin 300 mg capsule 300 mg PO HS #90 caps 08/03/25 levothyroxine 125 mcg tablet 125 mcg PO DAILYBB #90 tabs 08/03/25 lisinopril 10 mg tablet 10 mg PO QAM #90 tabs 08/03/25 meloxicam 7.5 mg tablet 7.5 mg PO BID #180 tabs 08/03/25 omeprazole 20 mg capsule,delayed 20 mg PO QAM #90 caps 08/03/25 release pramipexole 0.5 mg tablet 1 mg (2 x 0.5 mg) PO HS #180 tabs 08/03/25 oxycodone 5 mg tablet 5 mg PO Q6H PRN pain #10 tabs 08/28/25 hydrocodone 5 mg-acetaminophen 325 mg tablet 1 tab PO Q6H PRN mecobalamin (vitamin B12) 1,000 mcg chewable tablet 1,000 mcg PO QAM atorvastatin 40 mg tablet 40 mg PO QAM furosemide 20 mg tablet (Lasix) 20 - 40 mg (1 - 2 x 20 mg) PO HS PRN CBD cream 2 g topical .twice a day PRN acetaminophen 500 mg tablet (Tylenol Extra Strength) 500 mg PO Q6H PRN ferrous sulfate 325 mg (65 mg iron) tablet 325 mg PO DAILY gabapentin 300 mg capsule 300 mg PO HS levothyroxine 125 mcg tablet 125 mcg PO DAILY lisinopril 10 mg tablet 10 mg PO QAM meloxicam 7.5 mg tablet 7.5 mg PO BID omeprazole 20 mg capsule,delayed release 20 mg PO QAM pramipexole 0.5 mg tablet 1 mg (2 x 0.5 mg) PO HS oxycodone 5 mg tablet 5 mg PO Q6H PRN cholecalciferol (vitamin D3) 25 mcg (1,000 unit) tablet 2,000 unit PO DAILY Continue as directed levothyroxine 125 mcg tablet 125 mcg PO DAILY ASK your surgeon for instructions meloxicam 7.5 mg tablet 7.5 mg PO BID STOP taking 24 hours before surgery CBD cream 2 g topical .twice a day PRN DO NOT take the morning of surgery mecobalamin (vitamin B12) 1,000 mcg chewable tablet 1,000 mcg PO QAM ferrous sulfate 325 mg (65 mg iron) tablet 325 mg PO DAILY lisinopril 10 mg tablet 10 mg PO QAM cholecalciferol (vitamin D3) 25 mcg (1,000 unit) tablet 2,000 unit PO DAILY Take morning of surgery With a small sip of water, OTHERWISE NOTHING TO EAT OR DRINK AFTER MIDNIGHT: hydrocodone 5 mg-acetaminophen 325 mg tablet 1 tab PO Q6H PRN(if needed) atorvastatin 40 mg tablet 40 mg PO QAM acetaminophen 500 mg tablet (Tylenol Extra Strength) 500 mg PO Q6H PRN(if needed) omeprazole 20 mg capsule,delayed release 20 mg PO QAM oxycodone 5 mg tablet 5 mg PO Q6H PRN(if needed) Take evening before surgery hydrocodone 5 mg-acetaminophen 325 mg tablet 1 tab PO Q6H PRN(if needed) furosemide 20 mg tablet (Lasix) 20 - 40 mg (1 - 2 x 20 mg) PO HS PRN(if needed) acetaminophen 500 mg tablet (Tylenol Extra Strength) 500 mg PO Q6H PRN(if needed) gabapentin 300 mg capsule 300 mg PO HS pramipexole 0.5 mg tablet 1 mg (2 x 0.5 mg) PO HS oxycodone 5 mg tablet 5 mg PO Q6H PRN(if needed) Other Notes If you have any questions please call us at [phone] or [phone] or [phone] or [phone]
--- NOTE | 2025-09-19 08:41 | Anesthesiology Consultation ---
Date of Service September 19, 2025 Assessment & Plan (1) Encounter for pre-operative examination: - Infectious disease screening: Per assessment on 09/19/25- No known recent infectious disease contacts or current infectious disease symptoms. - [place] PCP visit 09/07/25: "..Est w/ ortho spine, has f/u next week, considering surgery.. continue gabapentin nightly, tylenol PRN, mobic daily.. continue oxycodone PRN pain.. If surgery is scheduled, labs to be done upon exit, EKG done in office and reviewed. Pending normal labs she is at acceptable risk to proceed with planned procedure if recommended.. Mild anemia, slight improvement from previous.. will continue oral B12 daily.. continue iron rich diet.. repeat cbc eveyr 6 mos.. Prediabetes.. stable. discussed dietary needs to help lower BS.. repeat A1C every 6mos.. Idiopathic polyneuropathy.. Stable, reviewed EMG Oct 2022.. Venous insufficiency.. Much improved post lymphedema therapy, continue conservative mgmt, lasix PRN.." Preop labs/EKG/CXR done 08/2025 unrema rkable; preop testing forwarded to PCP. Chart Review Chart Review: Acceptable Risk for Surgery and Patient seen in Pre Admission Testing Teaching & Discussion Pre-Anesthesia Teaching/Discussion Notes: Instructed NPO after midnight before surgery,except medications with 15 cc of water. Medication instructions provided according to the PAT guidelines. History Surgery Operation Date: 09/26/25 07:30 Proposed Procedures p Robotic L3-L4 Lateral Fusion Cage Posterior Fusion Instrumenation L2-L3 Decompression, Spinal Cord Monitoring - Kaden Nelson MD Height/Weight Height: 5 ft 4 in Weight: 106.4 kg Allergies Allergy/AdvReac Type Severity Reaction Status Date / Time No Known Drug Allergies Allergy Verified 09/14/25 13:03 Medications Home Medications Medication Instructions Recorded Confirmed Last Taken hydrocodone 5 mg-acetaminophen 325 1 tab PO Q6H PRN pain #20 tabs 06/16/23 09/14/25 05/01/24 mg tablet mecobalamin (vitamin B12) 1,000 1,000 mcg PO QAM 05/01/24 09/14/25 04/30/24 mcg chewable tablet atorvastatin 40 mg tablet 40 mg PO QAM #90 tabs 12/27/24 09/14/25 Unknown furosemide 20 mg tablet (Lasix) 20 - 40 mg (1 - 2 x 20 mg) PO HS 12/27/24 1 11/14/24 Unknown PRN edema #180 tabs CBD cream 2 g topical .twice a day PRN lower 03/27/25 09/14/25 Unknown back pain #32 grams acetaminophen 500 mg tablet 500 mg PO Q6H PRN fever #180 tabs 03/27/25 09/14/25 Unknown (Tylenol Extra Strength) ferrous sulfate 325 mg (65 mg 325 mg PO DAILY 03/27/25 09/14/25 Unknown iron) tablet gabapentin 300 mg capsule 300 mg PO HS #90 caps 08/03/25 09/14/25 Unknown levothyroxine 125 mcg tablet 125 mcg PO DAILYBB #90 tabs 08/03/25 09/14/25 Unknown lisinopril 10 mg tablet 10 mg PO QAM #90 tabs 08/03/25 09/14/25 Unknown meloxicam 7.5 mg tablet 7.5 mg PO BID #180 tabs 08/03/25 09/14/25 Unknown omeprazole 20 mg capsule,delayed 20 mg PO QAM #90 caps 08/03/25 09/14/25 Unknown release pramipexole 0.5 mg tablet 1 mg (2 x 0.5 mg) PO HS #180 tabs 08/03/25 09/14/25 Unknown cholecalciferol (vitamin D3) 25 2,000 unit PO DAILY 09/08/25 09/14/25 Unknown mcg (1,000 unit) tablet oxycodone 5 mg tablet 5 mg PO Q6H PRN pain #20 tabs 09/18/25 Unknown Past Medical History Medical History Anemia Degenerative spondylolisthesis GERD (gastroesophageal reflux disease) History of pancreatitis ~2022 Hx of colonic polyp Hyperlipidemia Hypertension Hypothyroidism Idiopathic polyneuropathy Lumbar radiculopathy Prediabetes Restless leg syndrome Spinal stenosis of lumbar region Venous insufficiency Exercise / Class Metabolic Activity II 4-5 Yardwork/Stairs/Walk up hill Past Family History Family History Father Prostate cancer Diabetes Coronary heart disease Myocardial infarction Hypertension Mother Ovarian cancer Aunt Ovarian cancer Aunt Dementia Other No family history of adverse response to anesthesia Denies family history of Breast cancer Colorectal cancer Past Surgical History Surgical History History of tonsillectomy As child History of total right knee replacement (07/04/24) History of wisdom tooth extraction Hx of cataract extraction (2023) R/L Hx of colonoscopy with polypectomy S/P appendectomy (1984) S/P right knee arthroscopy (07/22/23) S/P total hysterectomy and bilateral salpingo-oophorectomy (1984) Past Anesthesia History No Hx of Anesthesia Complications and No Family Hx of Anesthesia Complications History of PONV No Hx of PONV and No Hx of Motion Sickness Social History Smoking Status: Never smoker Do You Dip or Chew Tobacco: No Hx Alcohol Use: No Hx Substance Use: No substance use type: does not use Review of Systems Patient denies chest pain, shortness of breath, dyspnea on exertion, fever, chills, cough, wheezing, palpitations. Physical Exam Vital Signs BP 145/85 P 70 TEMP 97.7 SP02 97%RA RESP 18 Physical Full cervical extension range of motion. Full TMJ range of motion. TMD > 3.5 finger breaths Mallampati Score III Dentition: intact, + crowns Lungs: clear throughout to auscultation Cardiac: regular rate and rhythm, no murmurs noted Spine: no obvious deformity Carotid arteries: negative bruit Extremities: non-pitting LE edema Short neck Lab Results Anesthesia Preop Results Results Anesthesia Widget: WBC 7.71 K/ul (4.8-10.8) 09/07/25 Hgb 12.8 g/dL (12.0-16.0) 09/07/25 Hct 38.4 % (37.0-47.0) 09/07/25 Plt 401 K/uL (130-400) H 09/07/25 Na 138 mmol/L (136-145) 09/07/25 K 4.1 mmol/L (3.5-5.1) 09/07/25 Cl 102 mmol/L (98-107) 09/07/25 CO2 28 mmol/L (21-32) 09/07/25 BUN 13 mg/dl (6-23) 09/07/25 Creat 0.74 mg/dl (0.6-1.2) 09/07/25 Glucose Level 103 mg/dl (70-99(Fasting)) H 09/07/25 PT 10.3 Seconds (9.0-12.0) 09/19/25 PTT 23 Seconds (21-31) 09/19/25 INR 1.0 (0.9-1.1) 09/19/25 TSH 1.785 uIu/ml (0.300-4.500) 09/07/25 HA1c 6.2 % (4.5-5.6) H 09/07/25 Blood Type A Positive 09/19/25 Antibody Screen NEGATIVE 09/19/25 Testing Electrocardiogram Date: 09/07/25 SR at 79bpm. LAE. Possible RVCD. Chest X-Ray Date: 09/19/25 FINDINGS: Heart size and pulmonary vasculature are normal. Lungs are hyperexpanded. No consolidation or pleural effusion. There is minimal scoliosis. IMPRESSION: No acute findings. Scoliosis series x-ray Date: 09/19/25 FINDINGS: Stable diffuse degenerative changes with grossly stable anterolisthesis of L3 on 4 and L4 on 5. No fracture or vertebral anomaly seen. There is left convex curvature measuring 20 degrees centered at L1. There is right convex curvature measuring 20 degrees centered at L3-4. IMPRESSION: Scoliosis as described.
[2025-09-26] MEDS: LR 15ML/HR IV SCH (06:43)
[2025-09-26] MEDS: LR 60ML/HR IV SCH (06:44)
[2025-09-26] MEDS: ACETAMINOPHEN 500 MG TAB PO SCH (06:44)
[2025-09-26] MEDS ORDERED: ONDANSETRON INJ 2 MG/ML 2 ML VIAL ONE (06:54)
[2025-09-26] MEDS ORDERED: LIDOCAINE 2% 2 ML VIAL/AMP(20MG/ML) INFIL ONE (06:54)
[2025-09-26] MEDS ORDERED: DEXAMETHASONE SOD INJ 4 MG/ML VIAL ONE (06:54)
[2025-09-26] MEDS ORDERED: PROPOFOL IV EMULSION 10 MG/ML 20 ML VIAL IV ONE ×8 (06:54→13:37)
[2025-09-26] MEDS ORDERED: ROCURONIUM BROMIDE 10 MG/ML 5 ML VIAL IV ONE ×3 (06:54→10:24)
[2025-09-26] MEDS ORDERED: GLYCOPYRROLATE 0.2 MG/ML VIAL ONE (06:54)
[2025-09-26] MEDS ORDERED: MIDAZOLAM HCL 1 MG/ML 2ML VIAL ONE (06:55)
[2025-09-26] MEDS ORDERED: REMIFENTANIL HCL 1 MG VIAL IV ONE ×2 (07:03→13:38)
[2025-09-26] MEDS ORDERED: SUGAMMADEX SODIUM 200 MG/2 ML VIAL IV ONE (07:05)
[2025-09-26] MEDS ORDERED: PROPOFOL IV EMULSION 10 MG/ML 100 ML VIAL IV ONE ×3 (07:06→10:42)
[2025-09-26] MEDS ORDERED: KETAMINE HCL 10MG/ML SYR ONE ×2 (07:16→14:10)
--- NOTE | 2025-09-26 07:30 | History & Physical Bridge Note ---
Date of Service September 26, 2025 History & Physical Bridge Note I have examined the patient, reviewed the History & Physical and in the interval since the performance of the History & Physical I have noted the following changes of clinical significance: no changes noted
[2025-09-26] MEDS ORDERED: ONDANSETRON INJ 2 MG/ML 2 ML VIAL IV PRN ×2 (08:51→15:24)
[2025-09-26] MEDS ORDERED: HYDROmorphone INJ 2 MG/ML SYR/VIAL IV PRN (08:51)
[2025-09-26] MEDS ORDERED: DEXAMETHASONE SOD INJ 4 MG/ML VIAL IV PRN (08:51)
[2025-09-26] MEDS ORDERED: ATROPINE SULFATE 0.1 MG/ML 10ML SYR IV PRN (08:51)
[2025-09-26] MEDS: TRANEXAMIC ACID / 0.7% NACL 1000MG/100ML BAG IV ONE (10:14)
[2025-09-26] MEDS: VANCOMYCIN HCL 1000MG/20ML VIAL ONE (10:25)
[2025-09-26] MEDS ORDERED: HYDROmorphone INJ 2 MG/ML SYR/VIAL ONE (13:09)
[2025-09-26] MEDS: THROMBIN 5000 UNITS KIT ONE (13:25)
[2025-09-26] MEDS: GELATIN SPONGE 12-7MM ONE (13:25)
[2025-09-26] MEDS: BUPIVACAINE/EPINEPHRINE 0.5% MPF 1:200,000 30 ML VIAL ONE (14:41)
[2025-09-26] MEDS: FLOSEAL HEMOSTATIC MATRIX 5ML TOP ONE (14:42)
[2025-09-26] MEDS ORDERED: ONDANSETRON 4 MG OD TAB PO PRN (15:24)
[2025-09-26] MEDS ORDERED: LORazepam Inj 0.5 MG in SYRINGE 0.25 ML IV PRN (15:24)
[2025-09-26] MEDS ORDERED: HYDROmorphone INJ 1 MG/ML SYRINGE IV PRN (15:24)
[2025-09-26] MEDS ORDERED: ACETAMINOPHEN 1,000 MG/100 ML VIAL IV PRN (15:24)
[2025-09-26] MEDS ORDERED: SOD PHOSPHATE/SOD BIPHOSPHATE ENEMA 132 ML BTL PR PRN (15:24)
[2025-09-26] MEDS ORDERED: DO NOT ADMINISTER FLU VACCINE PRN (15:24)
[2025-09-26] MEDS ORDERED: ACETAMINOPHEN 500 MG TAB PO PRN (15:24)
[2025-09-26] MEDS ORDERED: NALOXONE HCL 0.4 MG/1 ML VIAL/CARP IV PRN (15:24)
[2025-09-26] MEDS ORDERED: ALUMINUM/MAGNESIUM SUSP 30 ML UDC PO PRN (15:24)
[2025-09-26] MEDS ORDERED: DO NOT ADMINISTER PNEUMOCOCCAL VACCINE PRN (15:24)
[2025-09-26] MEDS ORDERED: diphenhydrAMINE Capsule 25 MG CAP PO PRN (15:24)
[2025-09-26] MEDS ORDERED: MAGNESIUM HYDROXIDE SUSP 30 ML UDC PO PRN (15:24)
[2025-09-26] MEDS ORDERED: FAMOTIDINE 20 MG TAB PO PRN (15:24)
[2025-09-26] MEDS ORDERED: PROMETHAZINE 12.5 MG/50.5 ML BAG IV PRN (15:24)
[2025-09-26] MEDS ORDERED: LORazepam 0.5 MG TAB PO PRN (15:24)
[2025-09-26] MEDS ORDERED: METOCLOPRAMIDE HCL INJ 5 MG/ML 2 ML VIAL IV PRN (15:24)
--- NOTE | 2025-09-26 15:24 | Post Operative Brief Note ---
PG Immediate Post Op with CF Date of Surgery September 26, 2025 Pre & Post Diagnosis Operation Date: 09/26/25 07:30 Pre-Op Diagnosis: (1) Scoliosis of lumbar region due to degenerative disease of spine in adult (2) Degenerative spondylolisthesis (3) Spinal stenosis of lumbar region (4) Lumbar radiculopathy Post-Op Diagnosis: (1) Scoliosis of lumbar region due to degenerative disease of spine in adult (2) Degenerative spondylolisthesis (3) Spinal stenosis of lumbar region (4) Lumbar radiculopathy I identified the patient and participated in the time-out.: Yes Procedure Operation Date: 09/26/25 07:30 Actual Procedures p L3-L4 Lateral Fusion with Robotic Assisted Cage Posterior Fusion Instrumenation, L2-L3 Decompression, Spinal Cord Monitoring(Not Applicable) - Kaden Nelson MD Surgeon Kaden Nelson MD Blocker And Polisher Gold Wheel none Estimated Blood Loss 100 Findings Consistent with Post-Op Diagnosis Specimens Specimen Description: No specimen per surgeon Drains Newsome Catheter (Inserted prior to procedure start by Jessica Logan RN; 10cc in balloon; leg strap applied; clear, yellow urine returned)
--- NOTE | 2025-09-26 16:14 | Anesthesiology Progress Note ---
Date of Service September 26, 2025 Anesthesia Post Procedure Vital Signs Vital Signs: Temp Pulse Resp BP Pulse Ox O2 Del Method O2 Flow Rate 09/26/25 16:05 80 15 155/79 H 96 Nasal Cannula 2 09/26/25 15:55 82 12 139/84 93 Room Air 09/26/25 15:45 90 16 140/87 92 Room Air 09/26/25 15:35 104 H 18 164/102 H 98 Oxymask 10 09/26/25 15:25 96 H 16 150/95 H 98 Oxymask 10 09/26/25 15:16 36.0 C L 79 12 154/87 H 98 Oxymask 10 09/26/25 06:22 37 C 83 18 164/90 H 97 Room Air Pain Intensity Back: Pain Intensity: 6 Transfer of Care Handoff Completed per policy Notes Mental Status: alert / awake / arousable Patient Amnestic to Procedure: Yes Nausea / Vomiting: adequately controlled Pain: adequately controlled Airway Patency, RR, SpO2: stable & adequate BP & HR: stable & adequate Hydration State: stable & adequate Anesthetic Complications: no major complications apparent and Pt Satisfied with anesthetic care
--- NOTE | 2025-09-26 17:26 | Hospitalist Progress Note ---
Date of Service September 26, 2025 Assessment & Plan (1) Lumbar radiculopathy: (2) Hypertension: (3) GERD (gastroesophageal reflux disease): (4) Hyperlipidemia: (5) Hypothyroidism: (6) Restless leg syndrome: Plan #Status post lumbar spine surgeryper orthopedics. Pain control per Ortho. Outlined overall principles of pain control with patient. #DVT prophylaxisper orthopedics, SCDs #restless legsmoved Mirapex to 8 PM as fitting with her usual time of taking #hypertensionhold lisinopril for now pending a.m. labs and follow her hemodynamics. Once it is clear that she is hemodynamically stable with no perioperative DIANA, would resume #hypothyroidismcontinue levothyroxine #hyperlipidemiacontinue atorvastatin #GERDcontinue PPI Admission and Anticipated Discharge Date Admission Date: September 26, 2025 Subjective Feeling reasonably wellstill fairly groggy, not a lot of pain at this time. Does note that her restless legs can get very bothersome and she takes her medication around 8 PM. Review of Systems Review of Systems: All systems reviewed & are unremarkable except as noted in HPI & below Physical Exam Physical Exam: General she is awake alert oriented pleasant no distress. HEENT normocephalic atraumatic mucous membranes moist. Breathing unlabored no accessory muscle use good effort. Skin without rashes pallor or icterus. Neuro without focal defic its. Results & Data Results & Data Vital Signs (Past 12 Hours) Vital Signs Temp Pulse Pulse Resp BP BP Pulse Ox 09/26/25 17:05 09/26/25 16:59 97.9 F 84 18 129/75 96 09/26/25 16:30 97.7 F 80 14 147/80 H 93 09/26/25 16:15 97.5 F L 80 15 153/82 H 96 09/26/25 16:05 80 15 155/79 H 96 09/26/25 15:55 82 12 139/84 93 09/26/25 15:45 90 16 140/87 92 09/26/25 15:35 104 H 18 164/102 H 98 09/26/25 15:25 96 H 16 150/95 H 98 09/26/25 15:16 96.8 F L 79 12 154/87 H 98 09/26/25 06:22 98.6 F 83 18 164/90 H 97 O2 Del Method O2 Flow Rate 09/26/25 17:05 Nasal Cannula 2 09/26/25 16:59 Nasal Cannula 2 09/26/25 16:30 Room Air 09/26/25 16:15 Nasal Cannula 2 09/26/25 16:05 Nasal Cannula 2 09/26/25 15:55 Room Air 09/26/25 15:45 Room Air 09/26/25 15:35 Oxymask 10 09/26/25 15:25 Oxymask 10 09/26/25 15:16 Oxymask 10 09/26/25 06:22 Room Air PG Care Time/CCT Total # of Minutes Spent Total Time Spent with Patient: Total time spent is greater than 50% in coordination of care (as documented) at patient's floor/unit and/or counseling patient: Coding Level of Care Code 20144 SUB INP/OBS CARE MIN Diagnoses Lumbar radiculopathy M54.16 Primary hypertension I10 Hypertension type: primary hypertension GERD (gastroesophageal reflux disease) K21.9 Hyperlipidemia E78.5 Hypothyroidism E03.9 Restless leg syndrome G25.81 (2) Hypertension Hypertension type: primary hypertension Qualified Code(s): I10 - Essential (primary) hypertension
[2025-09-26] MEDS ORDERED: PRAMIPEXOLE DIHYDROCHLO 0.5 MG TAB PO SCH (21:00)
[2025-09-26] MEDS: DOCUSATE SODIUM/SENNA 50/8.6MG TAB PO SCH (21:01)
[2025-09-26] MEDS: PRAMIPEXOLE DIHYDROCHLO 0.5 MG TAB PO SCH (21:01)
[2025-09-26] MEDS: GABAPENTIN 300 MG CAP PO SCH (21:02)
[2025-09-27] MEDS: POLYETHYLENE (MIRALAX) 17 GM PACK PO SCH (06:00)
[2025-09-27] MEDS: LEVOTHYROXINE SODIUM 125 MCG TABLET PO SCH (06:06)
[2025-09-27 07:01] LABS: Hematocrit (blood only) 31.4 % (37.0-47.0); Hemoglobin 10.3 g/dL (12.0-16.0); Immature Granulocytes # (auto) 0.05 K/uL (0.01-0.20); Immature Granulocytes % (auto) 0.5 %; Mean Corpuscular Hemoglobin 29.9 pg (25.0-34.0); Mean Corpuscular Volume 91.3 fL (80.0-100.0); Platelet Count 297 K/uL (130-400); RDW Standard Deviation 42.5 fL (36.4-46.3); Red Blood Count 3.44 M/uL (4.20-5.40); White Blood Count 10.96 K/ul (4.8-10.8)
[2025-09-27] MEDS: ATORVASTATIN 40 MG TAB PO SCH (07:51)
[2025-09-27] MEDS: CHOLECALCIFEROL 25 MCG (1000 UNITS) TAB PO SCH (07:51)
--- NOTE | 2025-09-27 07:52 | Fluoroscopy Report ---
FL lumbar spine 2-3V CLINICAL HISTORY: L3-L4 FUSION, L2-L3 DECOMPRESSION COMPARISON STUDY: CT lumbar spine 08/26/2025 FLUOROSCOPY TIME: 126.1 seconds FLUOROSCOPY IMAGES: 12 EXPOSURE DOSE: 98.95 mGy FINDINGS: Single level lumbar discectomy with interbody manny and screw fusion. Retractors are noted po steriorly. Surgical garth are noted. The exact level of the surgery is not definitive based on magn ification. IMPRESSION: Fluoroscopic assistance as above. ACT 112: Negative or not required by law. Electronically signed by: Mike Orantes M.D. 09/27/2025 7:51 AM
[2025-09-27 08:08] LABS: Anion Gap 10.0 (3-11); Blood Urea Nitrogen 18.0 mg/dl (6-23); Calcium 8.7 mg/dl (8.6-10.3); Carbon Dioxide 24.0 mmol/L (21-32); Chloride 105.0 mmol/L (98-107); Creatinine Clr Calc Pharmacy 88.8 ml/min; Glucose 118.0 mg/dl (70-99(Fasting)); Potassium 4.2 mmol/L (3.5-5.1); Sodium 139.0 mmol/L (136-145)
--- NOTE | 2025-09-27 08:38 | Orthopedic Progress Note ---
Date of Service September 27, 2025 Assessment & Plan (1) Scoliosis of lumbar region due to degenerative disease of spine in adult: * Continue Current Treatment * Disposition: home 09/28 * Daily treatment: Physical Therapy/ Occupational Therapy per protocol * Weight bearing status: WBAT, no restrictions * Continue to monitor for ABLA * Dressing change post PT/OT * Pain control * Office/hospital f/u 2 weeks for progress check and staple/suture removal * Plan for discharge tomorrow pending PT/OT clearance * * Patient seen and examined, notes a distinct improvement in the lower extremity symptoms, some incisional symptoms and right groin pain which may be secondary to the right sided approach at L3-4. Mobilize with physical therapy today with potential discharge tomorrow depending physical therapy and medical clearance. Subjective .Active Problems: S/p L3-L4 Lateral Fusion with Robotic Assisted Cage Posterior Fusion Instrumentation, L2-L3 Decompression POD 1 70 y/o female s/p L3-L4 Lateral Fusion with Robotic Assisted Cage Posterior Fusion Instrumentation, L2-L3 Decompression. Doing well overall, pain managed and improved function. Denies fever/chills, chest pain/SOB, nausea/vomiting. Otherwise no complaints. Review of Systems All systems reviewed & are unremarkable except as noted in HPI & below. Physical Exam . * General: Alert and oriented, no acute distress * Constitutional: well-developed, well-nourished. * Respiratory: Normal respiratory effort, no distress * Gastrointestinal: No tenderness to palpation, no rigidity or guarding. * Skin: No rash or lesion. * Neurologic: Grossly normal * Musculoskeletal: Surgical dressing CDI. Lumbar spine region without obvious deformity or overlying skin changes. Minimal tenderness of surgical region, otherwise no tenderness b/l buttock or LE. Lumbar flexion/extension and rotation ROM with minimal pain. AROM b/l hip flexion, knee flexion/extension, ankle flexion/extension intact. Sensation intact plantar/dorsal foot. Brisk capillary refill. Results & Data Results & Data Laboratory Results . Diagnostic Findings . PG Care Time/CCT Total # of Minutes Spent Total Time Spent with Patient: Total time spent is greater than 50% in coordination of care (as documented) at patient's floor/unit and/or counseling patient: Coding Level of Care Code 15278 Post Operative Follow-Up Diagnoses Scoliosis of lumbar region due to degenerative disease of spine in adult M41.56
--- NOTE | 2025-09-27 14:09 | Operative Report ---
PG Post Operative Report Pre & Post Diagnosis Operation Date: 09/26/25 07:30 Pre-Op Diagnosis: (1) Scoliosis of lumbar region due to degenerative disease of spine in adult (2) Degenerative spondylolisthesis (3) Spinal stenosis of lumbar region (4) Lumbar radiculopathy Post-Op Diagnosis: (1) Scoliosis of lumbar region due to degenerative disease of spine in adult (2) Degenerative spondylolisthesis (3) Spinal stenosis of lumbar region (4) Lumbar radiculopathy I identified the patient and participated in the time-out.: Yes Procedure Operation Date: 09/26/25 07:30 Actual Procedures p L3-L4 Lateral Fusion with Robotic Assisted Cage Posterior Fusion Instrumenation, L2-L3 Decompression, Spinal Cord Monitoring(Not Applicable) - Kaden Nelson MD Surgeon Kaden Nelson MD Front End Technician none Estimated Blood Loss 100 Findings Consistent with Post-Op Diagnosis Specimens none Description of Procedure 1. L3-4 right lateral interbody arthrodesis. (02903) 2. L3-4 interbody cage, NuVasive cohere XL, 10 x 18 x 50 mm lordotic. (21946) 3. L3-4 posterolateral arthrodesis. (69063) 4. L3-4 posterior nonsegmental instrumentation, Medtronic modular X. (71574) 5. L3-4 posterior lumbar decompression/laminectomy. (04553) 6. L2-3 posterior lumbar decompression/laminectomy. (67147) 7. Stereotactic CT guided navigation for instrumentation. (65552) 8. Mazor robotic assistance. (S2900) 9. Utilization of products of decompression for fusion purposes. (54925) Patient was taken the operating room and after adequate anesthesia was carefully positioned left lateral decubitus position right side up for a right sided approach to the L3-4 level. After securing the patient to the table in a routine fashion for a lateral approach, adjustments were made to the table, visualization was obtained with C arm, the appropriate area was preprepped and then marked for the approximate location of the incision on the right side. Prep and drape was performed, I then made a transverse incision over the right iliac crest and through this I was able to carefully dissect down through the subcutaneous muscle layers and into the retroperitoneal region where I was able to then palpate the psoas and then inserted the initial dilator from the NuVasive set and advance it down to the lateral aspect of the L3-4 interspace, this was checked with fluoroscopy and monitoring. Noting an appropriate spot, the wire was inserted followed by the additional dilators and then the access apparatus. The apparatus was then adjusted using fluoroscopic control, and I then visualized this area directly along with checking it with the monitoring probe. Once in proper position I inserted the franki followed by minor adjustments in the positioning. From here the annulotomy was performed on the right side of the L3-4 disc space and then I moved through the disc base removing disc material. This process continued with a variety of different instrumentation to do a thorough discectomy and removal of cartilage from the endplates. Trials were then inserted, I selected the size cage as noted above, this was packed with fusion materials along with the interspace separate from the device, and this was then inserted with excellent position on AP and lateral views. Final inspection was performed and images, I then applied vancomycin powder and remove the access apparatus no issues were noted. The incision site was then closed using interrupted 0 Vicryl 2-0 Vicryl sutures and garth for the skin sterile dressing was applied. Patient was then reposition prone on the Kristian top table and carefully checked for positioning. A new prep and drape was performed for the lumbar spine, the approximate location for the incision had been already marked using fluoroscopy, I then inserted a pin into the right iliac crest posteriorly for the navigation instrumentation. Midline incision was then made through the subcutaneous tissues and advanced down to the spinous processes incorporating the area of the L2-3 L3-4 interspaces. I then mobilized tissues away from these regions to expose the appropriate fusion surfaces of the transverse processes of L3-L4, the facets of L3-4 and L4-5 for the instrumentation, and the interspace region of L2-3. This region was then documented using fluoroscopy, and at this point then the O-arm was brought into the operating room for the navigation. A spin was performed, and then using the navigation instrumentation, the robot was then ap plied to the area. Using robotic assistance, Merle, I then began the instrumentation process. The appropriate apparatus was then utilized to guide for insertion of the drill followed by taps and then insertion of pedicle screw for starting at the left at L3, then the left sided L4 followed by similar process for L3 and L4 on the right side. In each instance a combination of the initial drill using the navigation and the robot along with the taps in a followed by insertion of the screws were performed. An additional spin was completed, this revealed slight lateral placement of the left L3 screw, this was due to the location of the start point, the screw was then repositioned in the proper track, and a new spin was performed revealing excellent placement of all the instrumentation. The decompression was then performed, for starting at the L3-4 interspace, removal of the spinous process was performed inferiorly along with bilateral Nitin laminectomies partial medial facetectomies after thinning and removing the thickened ligamentum flavum posteriorly. I continued this process moving down the medial aspect of both facets, and then thinning and removing the thickened ligamentum flavum bilaterally. This included undercutting the facets and adequately decompressing the exiting nerve roots at L3 and L4. Upon completion, Floseal was applied, I then moved to the L2-3 interspace. A similar decompression was performed, removal of the inferior aspect of the spinous process, bilateral hemilaminectomies, partial medial facetectomies performed with initial thinning of the ligamentum flavum, upon removing the excess amount of facet bony overgrowth, I then completed decompression with undercutting the facets bilaterally and removing the thickened ligamentum flavum and decompressing the nerve roots. Is to note that I used the SilMach device to collect bone material during the decompression and this was later applied to the fusion areas posterolaterally at L3-4. Upon completion of the decompression no issues were noted, Floseal was applied, the L2-3 segment had a slight thinning of the dura so I placed some DuraSeal to this region as a precaution, vancomycin powder was placed in these regions along with Floseal. Instrumentation was then completed with insertion of rods and with this I then applied slight distraction on the left side and some limited compression on the right side to allow for for correction of some of the scoliosis. Final images were then obtained, the operative site had been irrigated thoroughly, I then applied vancomycin powder and closed the operative area with a layer of 0 Vicryl sutures followed by 2-0 Vicryl sutures and garth for the skin. Sterile dressing was applied, the patient tolerated procedure well was taken to recovery room in satisfactory condition. I attest to the content of the Intraoperative Record and any orders documented therein. Any exceptions are noted below.
--- NOTE | 2025-09-27 15:56 | Hospitalist Progress Note ---
Date of Service September 27, 2025 Assessment & Plan (1) Lumbar radiculopathy: (2) Hypertension: (3) GERD (gastroesophageal reflux disease): (4) Hyperlipidemia: (5) Hypothyroidism: (6) Restless leg syndrome: Plan #Status post lumbar spine surgeryper orthopedics. Pain control per Ortho. Outlined overall principles of pain control with patient. No BM yet -monitor for return of bowel function Acute blood loss anemia vs dilutional - 12.8 preop, 10.3 today. #DVT prophylaxisper orthopedics, SCDs #restless legsmoved Mirapex to 8 PM as fitting with her usual time of taking #hypertensionNo DIANA on labs, can resume 09/28, held lisinopril today with softer BPs this AM #hypothyroidismcontinue levothyroxine #hyperlipidemiacontinue atorvastatin #GERDcontinue PPI Thank you for allowing us to participate in the care of this patient, please reach out with any questions or concerns. Hospital Medicine will sign off Admission and Anticipated Discharge Date Admission Date: September 26, 2025 Supervising Physician Co-Signing Physician Notes PA Supervision Note: I did not personally see or examine the patient today, but I verified all peng points of NORRIS Gerber's assessment and plan with the following exceptions/additions: None Subjective Patient seen sitting in the chair, family present at bedside. Back pain is improving, does report occasional muscular pain on the right side and states that she spoke to orthopedics about this Has not had a bowel movement or passed gas since surgery. Review of Systems Review of Systems: All systems reviewed & are unremarkable except as noted in Subjective Physical Exam Physical Exam: General: NAD, VS as above Resp: normal respiratory effort, lungs clear to auscultation CV: RRR, no murmur, Abd: normal bowel sounds, non tender, soft Extremities: Moves all extremities, Bilateral GIOVANNY hose in place, nonpitting edema. Neuro: A&O x3, Results & Data Results & Data Vital Signs (Past 12 Hours) Vital Signs Temp Pulse Pulse Resp BP Pulse Ox O2 Del Method 09/27/25 15:26 97.9 F 85 19 141/82 H 95 Room Air 09/27/25 11:48 98.4 F 78 21 116/73 99 Room Air 09/27/25 08:05 Room Air 09/27/25 08:05 98.1 F 71 20 105/63 95 Room Air Laboratory Results cbc and chemistry reviewed PG Care Time/CCT Total # of Minutes Spent Total Time Spent with Patient: Total time spent is greater than 50% in coordination of care (as documented) at patient's floor/unit and/or counseling patient: Coding Level of Care Code 83790 SUB INP/OBS CARE 2/35MIN Diagnoses Lumbar radiculopathy M54.16 Primary hypertension I10 Hypertension type: primary hypertension GERD (gastroesophageal reflux disease) K21.9 Hyperlipidemia E78.5 Hypothyroidism E03.9 Restless leg syndrome G25.81 (2) Hypertension Hypertension type: primary hypertension Qualified Code(s): I10 - Essential (primary) hypertension
[2025-09-27] MEDS: HYDROmorphone INJ 0.5 MG/0.5 ML SYR IV PRN (20:55)
--- NOTE | 2025-09-28 08:33 | Orthopedic Progress Note ---
Date of Service September 28, 2025 Assessment & Plan (1) Scoliosis of lumbar region due to degenerative disease of spine in adult: * Continue Current Treatment * Disposition: home 09/28 * Daily treatment: Physical Therapy/ Occupational Therapy per protocol * Weight bearing status: WBAT, no restrictions * Continue to monitor for ABLA * Dressing change post PT/OT * Pain control * Office/hospital f/u 2 weeks for progress check and staple/suture removal * Plan for discharge today pending PT/OT clearance, bowel movement Subjective Active Problems: S/p L3-L4 Lateral Fusion with Robotic Assisted Cage Posterior Fusion Instrumentation, L2-L3 Decompression POD 2 70 y/o female s/p L3-L4 Lateral Fusion with Robotic Assisted Cage Posterior Fusion Instrumentation, L2-L3 Decompression. Doing well overall, pain managed and improved function. Denies fever/chills, chest pain/SOB, nausea/vomiting. Otherwise no complaints. Review of Systems All systems reviewed & are unremarkable except as noted in HPI & below. Physical Exam * Musculoskeletal: Surgical dressing CDI. Lumbar spine region without obvious deformity or overlying skin changes. Minimal tenderness of surgical region, otherwise no tenderness b/l buttock or LE. Lumbar flexion/extension and rotation ROM with minimal pain. AROM b/l hip flexion, knee flexion/extension, ankle flexion/extension intact. Sensation intact plantar/dorsal foot. Brisk capillary refill. Results & Data Results & Data Laboratory Results . Diagnostic Findings . PG Care Time/CCT Total # of Minutes Spent Total Time Spent with Patient: Total time spent is greater than 50% in coordination of care (as documented) at patient's floor/unit and/or counseling patient: Coding Level of Care Code 98054 Post Operative Follow-Up Diagnoses Scoliosis of lumbar region due to degenerative disease of spine in adult M41.56
[2025-09-28 11:15] VITALS: RESP 22; TEMP 99.7; O2SAT 99
[2025-09-28 11:21] VITALS: BP 140/84; PULSE 78
--- NOTE | 2025-09-28 12:20 | Discharge Summary ---
Date of Service September 28, 2025 Admission HPI (Per Admitting) Patient presents to hospital 09/26/2025 for elective L3-4 Lateral Fusion with Robotic Assisted Cage Posterior Fusion Instrumentation, L2-L3 Decompression. Principal Diagnosis Same as "Discharge Diagnosis" noted below under Discharge Instructions. Discharge Exam * Musculoskeletal: Surgical dressing CDI. Lumbar spine region without obvious deformity or overlying skin changes. Minimal tenderness of surgical region, otherwise no tenderness b/l buttock or LE. Lumbar flexion/extension and rotation ROM with minimal pain. AROM b/l hip flexion, knee flexion/extension, ankle flexion/extension intact. Sensation intact plantar/dorsal foot. Brisk capillary refill. Discharge Data Consultations 09/26/25 15:29 Consult Hospitalist Routine Procedures Performed Operation Date: 09/26/25 07:30 Actual Procedures p L3-L4 Lateral Fusion with Robotic Assisted Cage Posterior Fusion Instrumenation, L2-L3 Decompression, Spinal Cord Monitoring(Not Applicable) - Kaden Nelson MD Ordered Studies 09/26/25 07:30 CT lumbar spine wo con Routine [place] lumbar spine 2-3V Routine Hospital Course (1) Degenerative spondylolisthesis: (2) Spinal stenosis of lumbar region: Neurogenic claudication status: with neurogenic claudication Qualified Code(s): M48.062 - Spinal stenosis, lumbar region with neurogenic claudication Plan Patient presents to hospital 09/26/2025 for elective L3-4 Lateral Fusion with Robotic Assisted Cage Posterior Fusion Instrumentation, L2-L3 Decompression. Procedure complete without complication. Postoperatively patient was admitted to hospital for observation, PT/OT evaluation. Patient completed PT/OT evaluation without issue and is cleared for return to home. Hospital medicine team is also consulted for assistance with medical management and was cleared for discharge from an overall medical standpoint. POD 2 patient overall comfortable regarding pain and function level, cleared for discharge home. She will follow-up with surgical team as scheduled. PG Care Time/CCT Total # of Minutes Spent Total Time Spent with Patient: Total time spent is greater than 50% in coordination of care (as documented) at patient's floor/unit and/or counseling patient: Discharge Plan Discharge Items Patient Disposition: Home - Self-Care Reason For Visit: scoliosis of Lumbar Region Due to Degenerative Dis Discharge Diagnosis: s/p lumbar fusion Activity: Per Instructions section Non-emergency contact: Surgeon Call non-emergency contact if: your symptoms worsen, your temperature is above 101.5, your wound has increased redness and your wound has increased drainage Follow-up/Referrals: Winsome Le DO [Primary Care Provider] - 10/05/25 11:00 am Diet: Regular Addtl Attending Provider Instructions: May shower on 3rd day after surgery. You can wash the incision and surgical site with soap and water briefly and then blot dry with a clean towel/cloth. Cover with a new, sterile dry dressing. If unable to change your dressing, then leave hospital dressing intact and cover the area for showering. Do NOT soak incision. No strenuous activity, lifting, or exercise until further instructed. Use the prescribed pain medication, or [id number] Tylenol, as needed for pain relief -- follow directions on the bottle; limit Tylenol to 4,000 mg maximum in a 24-hour period. No use of NSAIDs (i.e ibuprofen/Advil/Motrin, naproxen/Aleve, etc.) for at least 2 months after surgery Pending Studies at Discharge: No Stand-Alone Forms: My [facility], Smoking Cessation Medications and DC Order Prescriptions: New oxycodone 5 mg tablet 5 mg PO Q6H PRN (Reason: pain) Qty: 20 0RF Continued gabapentin 300 mg capsule 300 mg PO HS Qty: 90 1RF levothyroxine 125 mcg tablet 125 mcg PO DAILYBB Qty: 90 1RF lisinopril 10 mg tablet 10 mg PO QAM Qty: 90 1RF meloxicam 7.5 mg tablet 7.5 mg PO BID Qty: 180 1RF omeprazole 20 mg capsule,delayed release(DR/EC) 20 mg PO QAM Qty: 90 1RF pramipexole 0.5 mg tablet 1 mg PO HS Qty: 180 1RF cholecalciferol (vitamin D3) 25 mcg (1,000 unit) tablet 2,000 unit PO DAILY oxycodone 5 mg tablet 5 mg PO Q6H PRN (Reason: pain) Qty: 20 0RF hydrocodone-acetaminophen 5-325 mg tablet 1 tab PO Q6H PRN (Reason: pain) Qty: 20 0RF furosemide [Lasix] 20 mg tablet 20 - 40 mg PO HS PRN (Reason: edema) Qty: 180 1RF atorvastatin 40 mg tablet 40 mg PO QAM Qty: 90 1RF CBD cream cream 2 g topical .twice a day PRN (Reason: lower back pain) Qty: 32 0RF acetaminophen [Tylenol Extra Strength] 500 mg tablet 500 mg PO Q6H PRN (Reason: fever) Qty: 180 0RF ferrous sulfate 325 mg (65 mg iron) tablet 325 mg PO DAILY mecobalamin (vitamin B12) 1,000 mcg tablet,chewable 1,000 mcg PO QAM Discharge Orders: Discharge Order (Routine); Ordered 09/28/25 Ordered By: Tee Bains Admission Data Admit Date/Time: 09/26/25 15:29 Attending Provider: Kaden Nelson Admit Provider: Kaden Nelson Primary Care Provider: Winsome Le Other Interventions: Discharge Summary Assessment (RN) Last Done: 09/28/25 11:16
== END 2025-09-28 12:15 | disposition home or self-care (01) | DRG 458 ==
LOC: ASU 05:59 → 3E 15:29